=== PATIENT | male | born 1960 | race Caucasian/White ===

== ENCOUNTER 2019-01-13 19:51 | Inpatient (IN) | payer BC ==
[2019-01-13] MEDS ORDERED: HYDROmorphone 1 MG/ML Syringe IVPUSH ONE ×2 (20:06→21:24)
[2019-01-13] MEDS ORDERED: Ondansetron 4 MG/2 ML SDV IVPUSH ONE (20:06)
[2019-01-13] MEDS: Sodium Chloride 0.9% 1,000 ML IV SCH (20:12)
--- NOTE | 2019-01-13 20:14 | EDM.PDOC ---
ED HPI GENERAL MEDICAL PROBLEM - General Chief Complaint: Lower Extremity Injury/Pain Stated Complaint: [facility] Time Seen by Provider: 01/13/19 19:53 Source of Information: Reports: Patient, Family () History Limitations: Reports: No Limitations - History of Present Illness INITIAL COMMENTS - FREE TEXT/NARRATIVE: Mr. 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 He was able to get up, but cannot bear weight on his right lower extremity due to pain in his right hip. He states that he is otherwise uninjured. No prior right hip injury. The patient was brought to the ED by EMS. An IV was placed, but he did not receive any medication. Here in the ED, the patient is keeping his right hip flexed at about 90, with a pillow under his knee. He states that he is not in any pain at present, but does not tolerate moving the hip. The patient's last solid food was around 19:00. The patient's PCP is Dr. Srinivas Mcrae. His Oncologist is Dr. Refugio Morel. His Orthopedic Surgeon is Dr. Abdoul Tadeo. The patient has not received an influenza vaccine this season, but declined an offer for one tonight. Right Hip Pain Score (Numeric/FACES): 6 - Related Data Allergies Allergy/AdvReac Type Severity Reaction Status Date / Time No Known Allergies Allergy Verified 01/13/19 19:58 Past Medical History Cardiovascular History: Reports: High Cholesterol Musculoskeletal History: Reports: Osteoarthritis (bilateral knees) Neurological History: Reports: CVA (RLE hemiparesis) Oncologic (Cancer) History: Reports: Brain (Grade 1 astrocytoma dx'd 1983, s/p excision, RTx), Colon (Stage 3, dx'd 2011, s/p hemicolectomy, RTx, CTx) - Past Surgical History Head Surgeries/Procedures: Reports: Craniotomy (Excision of brain astrocytoma 1983) GI Surgical History: Reports: Colon (Hemicolectomy 2011), Colonoscopy Male Surgical History: Reports: Varicocele Resection Social & Family History - Family History Family Medical History: Noncontributory - Tobacco Use Smoking Status *Q: Never Smoker - Caffeine Use Caffeine Use: Reports: Coffee - Alcohol Use Alcohol Use History: Yes Alcohol Use Frequency: Socially - Recreational Drug Use Recreational Drug Use: Yes Drug Use in Last 12 Months: No Recreational Drug Type: Reports: Marijuana/Hashish (last smoked when 20 years old) - Living Situation & Occupation Living situation: Reports: , with Spouse Occupation: Employed ([employer]) Review of Systems - Review of Systems Review Of Systems: Comprehensive ROS is negative, except as noted in HPI. ED EXAM, GENERAL - Physical Exam Exam: See Below Exam Limited By: No Limitations General Appearance: Alert, WD/WN, No Apparent Distress Eye Exam: Bilateral Eye: EOMI, Normal Inspection Ears: Normal External Exam, Hearing Grossly Normal Nose: Normal Inspection Throat/Mouth: Normal Inspection, Normal Lips, Normal Voice, No Airway Compromise Head: Atraumatic, Normocephalic Neck: Normal Inspection, Full Range of Motion Respiratory/Chest: No Respiratory Distress, Lungs Clear, Normal Breath Sounds, No Accessory Muscle Use Cardiovascular: Normal Peripheral Pulses, Regular Rate, Rhythm, No Edema, No Gallop, No JVD, No Murmur, No Rub Peripheral Pulses: 4+: Radial (L), Radial (R) GI/Abdominal: Normal Bowel Sounds, Soft, Non-Tender, No Organomegaly, No Distention, No Abnormal Bruit, No Mass (Male) Exam: Deferred Rectal (Males) Exam: Deferred Back Exam: Other (Unable to inspect the patient's back, as the patient is unable to extend his right hip) Extremities: Normal Inspection, Normal Range of Motion, Non-Tender (including palpation of the anterior, lateral, and posterior right hip, however, pain is induced and the right hip with any attempt at flexion or extension, traction, or compression.), No Pedal Edema, Normal Capillary Refill Neurological: Alert, Oriented, Normal Cognition, No Motor/Sensory Deficits, Other (Right upper extremity tremor) Psychiatric: Normal Affect Skin Exam: Warm, Dry, Intact, Normal Color, No Rash Course - Vital Signs Last Recorded V/S: Last Vital Signs Temp 37.1 C 01/13/19 19:54 Pulse 55 L 01/13/19 19:54 Resp 15 01/13/19 19:54 BP 111/72 01/13/19 19:54 Pulse Ox 98 01/13/19 19:54 - Orders/Labs/Meds Orders: Active Orders 24 hr Category Date Time Status Sodium Chloride 0.9% [Normal Saline] 1,000 ml Med 01/13/19 20:15 Active IV ASDIRECTED Medication Orders Sodium Chloride (Normal Saline) 1,000 mls @ 100 mls/hr IV ASDIRECTED MARIIA Last Admin: 01/13/19 20:12 Dose: 100 mls/hr Meds: Medications Generic Name Dose Route Start Last Admin Trade Name Freq PRN Reason Stop Dose Admin Sodium Chloride 1,000 mls @ 100 mls/hr 01/13/19 20:15 01/13/19 20:12 Normal Saline IV 100 mls/hr ASDIRECTED MARIIA Administration Discontinued Medications Generic Name Dose Route Start Last Admin Trade Name Freq PRN Reason Stop Dose Admin Hydromorphone HCl 1 mg 01/13/19 20:06 01/13/19 20:13 Dilaudid IVPUSH 01/13/19 20:07 1 mg ONETIME ONE Administration Hydromorphone HCl 1 mg 01/13/19 21:24 01/13/19 21:27 Dilaudid IVPUSH 01/13/19 21:25 1 mg ONETIME ONE Administration Hydromorphone HCl Confirm 01/13/19 21:26 Dilaudid Administered 01/13/19 21:27 Dose 1 mg .ROUTE .STK-MED ONE Ondansetron HCl 4 mg 01/13/19 20:06 01/13/19 20:12 Zofran IVPUSH 01/13/19 20:07 4 mg ONETIME ONE Administration - Re-Assessments/Exams Free Text/Narrative Re-Assessment/Exam: 01/13/19 20:22 I have ordered some Dilaudid, Zofran, and IV fluid, along with right hip x- rays. We will see if we can straighten the patient's right hip after he receives Dilaudid, in order to get adequate x-rays. 01/13/19 20:59 3-view radiographs of the right hip and pelvis appears to demonstrate an impacted fracture at the junction of the neck and trochanter. No other fractures seen. Formal read per the Radiologist pending. Case discussed with Dr. Tadeo. He requested that we admit the patient to the Hospitalist, and he will fix the hip either tomorrow or Sunday. He does not need any additional workup at this time. 01/13/19 21:06 The above situation was discussed with the patient and his . They are agreeable to his being admitted. 01/13/19 21:[address] Harper at 21:44. She is willing to admit the patient , but does not see any active medical issues that she needs to address. She will contact Dr. Tadeo to see if he really wants the patient admitted to her service versus admitting the patient himself, then call me back. 01/13/19 21:[address] Harper at 21:56. She will admit the patient to her service. Departure - Departure Time of Disposition: 21:59 Disposition: Admitted As Inpatient 67 Condition: Good Clinical Impression: Fracture of right hip requiring operative repair - Discharge Information *PRESCRIPTION DRUG MONITORING PROGRAM REVIEWED*: Not Applicable *COPY OF PRESCRIPTION DRUG MONITORING REPORT IN PATIENT BABS: Not Applicable Referrals: Srinivas Mcrae MD [Primary Care Provider] - Refugio Morel MD [Ordering Only Provider] - Abdoul Tadeo MD [Physician] - - My Orders Last 24 Hours: My Active Orders 01/13/19 20:15 Sodium Chloride 0.9% [Normal Saline] 1,000 ml IV ASDIRECTED - Assessment/Plan Last 24 Hours: My Active Orders 01/13/19 20:15 Sodium Chloride 0.9% [Normal Saline] 1,000 ml IV ASDIRECTED
--- NOTE | 2019-01-13 20:48 | CR ---
Pelvis and are right hip: AP view of the pelvis was obtained as well as AP and frog-leg lateral views of the right hip. Comparison: No previous study. Fracture is noted within a basicervical/upper intertrochanteric location within the right hip. Mild varus angulation is seen. There appears to be a fracture isolating the greater trochanter as seen on the crosstable lateral view. No additional fracture or other abnormality is seen. Impression: 1. Right hip fracture as noted above. Diagnostic code #5
[2019-01-13] MEDS ORDERED: HYDROmorphone 1 MG/ML Syringe ONE (21:26)
[2019-01-14] MEDS ORDERED: Ondansetron 4 MG/2 ML SDV IV PRN (00:10)
[2019-01-14] MEDS ORDERED: Morphine 2 MG/ML Syringe IVPUSH PRN (00:10)
--- NOTE | 2019-01-14 00:16 | PCM.HP.2 ---
H&P History of Present Illness - General Date of Service: 01/13/19 Admit Problem/Dx: Admission Diagnosis/Problem Admission Diagnosis/Problem Hip fracture requiring operative repair - History of Present Illness Initial Comments - Free Text/Narative: Mr. 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 He was able to get up, but cannot bear weight on his right lower extremity due to pain in his right hip. He states that he is otherwise uninjured. No prior right hip injury. The patient was brought to the ED by EMS. An IV was placed, but he did not receive any medication. Here in the ED, the patient is keeping his right hip flexed at about 90, with a pillow under his knee. He states that he is not in any pain at present, but does not tolerate moving the hip. Right Hip Pain Score (Numeric/FACES): 6 - Related Data Allergies/Adverse Reactions: Allergies Allergy/AdvReac Type Severity Reaction Status Date / Time No Known Allergies Allergy Verified 01/13/19 19:58 Home Medications: Home Meds Pravastatin [Pravachol] 40 mg PO BEDTIME 01/14/19 [History] Acetaminophen/oxyCODONE [Percocet 325-5 MG] 1 - 2 tab PO Q4H PRN #60 tablet [Rx] Aspirin [Ecotrin EC] 325 mg PO BID #84 tab.ec 01/15/19 [Rx] Cyclobenzaprine [Flexeril] 5 mg PO TID PRN #40 tablet 01/15/19 [Rx] Docusate Sodium [Colace] 100 mg PO BID PRN #20 cap 01/15/19 [Rx] Past Medical History HEENT History: Reports: Impaired Vision Cardiovascular History: Reports: High Cholesterol Musculoskeletal History: Reports: Osteoarthritis Other Musculoskeletal History: steroid injection R kneex1 Neurological History: Reports: CVA Other Neuro History: R foot drop and general weakness in R leg, R facial droop and slight slurred speech- wears brace Oncologic (Cancer) History: Reports: Basal Cell Carcinoma, Brain, Colon Other Oncologic History: astrocytoma grade 1 - 1983. Colon ca in 12. R side of ear/face basal cell carcinoma Dermatologic History: Reports: Other (See Below) Other Dermatologic History: alopecia - Infectious Disease History Infectious Disease History: Reports: Chicken Pox - Past Surgical History Head Surgeries/Procedures: Reports: Craniotomy GI Surgical History: Reports: Colon, Colonoscopy Other GI Surgeries/Procedures: bowel resection- 2011 stage 3 colon cancer Male Surgical History: Reports: Varicocele Resection Social & Family History - Family History Family Medical History: Noncontributory - Tobacco Use Smoking Status *Q: Never Smoker - Caffeine Use Caffeine Use: Reports: Coffee Other Caffeine Use: 2-3 cups/day - Recreational Drug Use Recreational Drug Use: No Drug Use in Last 12 Months: No Recreational Drug Type: Reports: Marijuana/Hashish (last smoked when 20 years old) - Living Situation & Occupation Living situation: Reports: , with Spouse Occupation: Employed ([employer]) H&P Review of Systems - Review of Systems: Review Of Systems: Comprehensive ROS is negative, except as noted in HPI. Exam - Exam Exam: See Below - Vital Signs Vital Signs: Last Vital Signs Temp 98.1 F 01/13/19 22:35 Pulse 79 01/13/19 22:35 Resp 16 01/13/19 22:35 BP 122/95 H 01/13/19 22:35 Pulse Ox 92 L 01/13/19 22:35 Weight: 90.718 kg - Exam Physical Exam Comments:: General Appearance: Alert, WD/WN, No Apparent Distress Eye Exam: Bilateral Eye: EOMI, Normal Inspection Ears: Normal External Exam, Hearing Grossly Normal Nose: Normal Inspection Throat/Mouth: Normal Inspection, Normal Lips, Normal Voice, No Airway Compromise Head: Atraumatic, Normocephalic Neck: Normal Inspection, Full Range of Motion Respiratory/Chest: No Respiratory Distress, Lungs Clear, Normal Breath Sounds, No Accessory Muscle Use Cardiovascular: Normal Peripheral Pulses, Regular Rate, Rhythm, No Edema, No Gallop, No JVD, No Murmur, No Rub Peripheral Pulses: 4+: Radial (L), Radial (R) GI/Abdominal: Normal Bowel Sounds, Soft, Non-Tender, No Organomegaly, No Distention, No Abnormal Bruit, No Mass (Male) Exam: Deferred Rectal (Males) Exam: Deferred Back Exam: Other (Unable to inspect the patient's back, as the patient is unable to extend his right hip) Extremities: Normal Inspection, Normal Range of Motion, Non-Tender (including palpation of the anterior, lateral, and posterior right hip, however, pain is induced and the right hip with any attempt at flexion or extension, traction, or compression.), No Pedal Edema, Normal Capillary Refill Neurological: Alert, Oriented, Normal Cognition, No Motor/Sensory Deficits, Other (Right upper extremity tremor) Psychiatric: Normal Affect Skin Exam: Warm, Dry, Intact, Normal Color, No Rash - Patient Data Result Diagrams: 01/15/19 04:40 01/15/19 04:40 - Problem List (1) Fracture of right hip requiring operative repair SNOMED Code(s): 423194144 ICD Code: S72.001A - FRACTURE OF UNSP PART OF NECK OF RIGHT FEMUR, INIT Status: Acute Priority: High Qualifiers: Encounter type: initial encounter Fracture type: closed Qualified Code(s) : S72.001A - Fracture of unspecified part of neck of right femur, initial encounter for closed fracture (2) HLD (hyperlipidemia) SNOMED Code(s): 87251186 ICD Code: E78.5 - HYPERLIPIDEMIA, UNSPECIFIED Status: Chronic Priority: Low Qualifiers: Hyperlipidemia type: unspecified Qualified Code(s): E78.5 - Hyperlipidemia , unspecified Problem List Initiated/Reviewed/Updated: Yes Assessment/Plan Comment:: Right hip fracture Xray described a basicervical / upper intertrochanteric fracture within the r hip PLAN - Pain control - NPO after midnight - Surgery in AM DLD Home management with statin PLAN - reconcile medication once available PROPHYLAXIS DVT-SCDs GI-Not indicated CODE STATUS: FULL CODE DISPOSITION: Presented case to orthopedics in ER, surgery in the AM. - Mortality Measure Prognosis:: Good
[2019-01-14] MEDS: Ketorolac 15 MG/ML SDV IVPUSH PRN ×2 (03:09→15:05)
[2019-01-14] MEDS: Sodium Chloride 0.9% 1,000 ML IV SCH (05:44)
--- NOTE | 2019-01-14 09:23 | PCM.PN ---
- General Info Date of Service: 01/14/19 Admission Dx/Problem (Free Text): Admission Diagnosis/Problem Admission Diagnosis/Problem Hip fracture requiring operative repair Subjective Update: In to see Ian before and after surgery He is doing well. Pain is controlled. PT/OT to evaluate patient and present home exercises Hgb stable with minimal blood loss during surgery. Functional Status: Reports: Pain Controlled, Tolerating Diet, Urinating, Incentive Spirometry. Denies: Ambulating, New Symptoms - Review of Systems General: Reports: No Symptoms. Denies: Fever, Weakness, Fatigue, Malaise, Chills HEENT: Reports: No Symptoms. Denies: Headaches, Sore Throat Pulmonary: Reports: No Symptoms. Denies: Shortness of Breath, Cough, Sputum, Wheezing Cardiovascular: Reports: No Symptoms. Denies: Chest Pain, Palpitations, Dyspnea on Exertion Gastrointestinal: Reports: No Symptoms. Denies: Abdominal Pain, Constipation, Diarrhea, Nausea, Vomiting Genitourinary: Reports: No Symptoms. Denies: Pain Musculoskeletal: Reports: Leg Pain (Right hip - stable and controlled ) Skin: Reports: No Symptoms. Denies: Cyanosis Neurological: Reports: Difficulty Walking, Gait Disturbance. Denies: Confusion Psychiatric: Reports: No Symptoms - Patient Data Vitals - Most Recent: Last Vital Signs Temp 98.2 F 01/14/19 05:40 Pulse 58 L 01/14/19 05:40 Resp 16 01/14/19 05:40 BP 118/64 01/14/19 05:40 Pulse Ox 97 01/14/19 05:40 Weight - Most Recent: 202 lb 14.4 oz I&O - Last 24 Hours: Intake & Output 01/13/19 01/14/19 01/14/19 22:59 06:59 14:59 Intake Total 718 Balance 718 Lab Results Last 24 Hours: Laboratory Results - last 24 hr 01/13/19 Range/Units 23:00 MRSA (PCR) Negative Med Orders - Current: Current Medications Sodium Chloride (Normal Saline) 1,000 mls @ 100 mls/hr IV ASDIRECTED MARIIA Last Admin: 01/14/19 05:44 Dose: 100 mls/hr Ketorolac Tromethamine (Toradol) 15 mg IVPUSH Q6H PRN PRN Reason: Pain (moderate 4-6) Stop: 01/19/19 00:11 Last Admin: 01/14/19 03:09 Dose: 15 mg Morphine Sulfate (Morphine) 1 mg IVPUSH Q2H PRN PRN Reason: Pain (severe 7-10) Stop: 01/15/19 00:13 Last Admin: 01/14/19 00:28 Dose: 1 mg Ondansetron HCl (Zofran) 4 mg IV Q6H PRN PRN Reason: Nausea/Vomiting Discontinued Medications Hydromorphone HCl (Dilaudid) 1 mg IVPUSH ONETIME ONE Stop: 01/13/19 20:07 Last Admin: 01/13/19 20:13 Dose: 1 mg Hydromorphone HCl (Dilaudid) 1 mg IVPUSH ONETIME ONE Stop: 01/13/19 21:25 Last Admin: 01/13/19 21:27 Dose: 1 mg Hydromorphone HCl (Dilaudid) Confirm Administered Dose 1 mg .ROUTE .STK-MED ONE Stop: 01/13/19 21:27 Last Admin: 01/13/19 22:14 Dose: Not Given Ondansetron HCl (Zofran) 4 mg IVPUSH ONETIME ONE Stop: 01/13/19 20:07 Last Admin: 01/13/19 20:12 Dose: 4 mg - Exam Quality Assessment: Urine Catheter, DVT Prophylaxis. No: Supplemental Oxygen General: Alert, Oriented, Cooperative, No Acute Distress HEENT: Pupils Equal, Pupils Reactive, EOMI, Mucous Membr. Moist/[place] Neck: Supple, Trachea Midline Lungs: Clear to Auscultation, Normal Respiratory Effort Cardiovascular: Regular Rate, Regular Rhythm GI/Abdominal Exam: Normal Bowel Sounds, Soft, Non-Tender, No Distention, No Abnormal Bruit (Male) Exam: Deferred Back Exam: Normal Inspection, Full Range of Motion Extremities: No Pedal Edema, Normal Capillary Refill, Leg Pain (Right hip ), Limited Range of Motion (Leg in flexed position - severe pain with movement ) Peripheral Pulses: 2+: Radial (L), Radial (R), Dorsalis Pedis (L), Dorsalis Pedis (R) Skin: Warm, Dry, Intact Neurological: No New Focal Deficit Psy/Mental Status: Alert, Normal Affect, Normal Mood - Problem List & Annotations (1) HLD (hyperlipidemia) SNOMED Code(s): 70848946 Code(s): E78.5 - HYPERLIPIDEMIA, UNSPECIFIED Status: Chronic Priority: Low Qualifiers: Hyperlipidemia type: unspecified Qualified Code(s): E78.5 - Hyperlipidemia , unspecified (2) Fracture of right hip requiring operative repair SNOMED Code(s): 813281097 Code(s): S72.001A - FRACTURE OF UNSP PART OF NECK OF RIGHT FEMUR, INIT Status: Acute Priority: High Qualifiers: Encounter type: initial encounter Fracture type: closed Qualified Code(s) : S72.001A - Fracture of unspecified part of neck of right femur, initial encounter for closed fracture - Problem List Review Problem List Initiated/Reviewed/Updated: Yes - Plan Plan:: Right hip fracture Xray described a basicervical / upper intertrochanteric fracture within the r hip No known prior cardiac or lung problems History of CVA, Astrocytoma s/p excision, Colon cancer s/p resection. PLAN - Pain control - NPO until after surgery - Surgery today - 12-lead EKG obtained - PT/OT post-surgically - Based on data present patient is low risk for adverse events secondary to planned IM nailing of right hip. DLD Home management with statin PLAN - reconcile medication once available Hx/o CVA with residual right sided hemiparesis Plan -PT/OT PROPHYLAXIS DVT-SCDs GI-Not indicated CODE STATUS: FULL CODE DISPOSITION: Presented case to orthopedics in ER, surgery in the AM.
--- NOTE | 2019-01-14 10:28 | PCM.PREANE ---
Preanesthetic Assessment - Anesthesia/Transfusion/Family Hx Anesthesia History: Prior Anesthesia Without Reaction Family History of Anesthesia Reaction: No Transfusion History: No Prior Transfusion(s) Intubation History: Unknown - Review of Systems General: No Symptoms Pulmonary: No Symptoms (ETOH occasionally, high cholesterol), Cough (recent cold residual that is now clearing up) Cardiovascular: Palpitations (On occasion with anxiety) Gastrointestinal: No Symptoms (GERD on occasion) Neurological: No Symptoms (CVA(2011) right lower leg hemiparesis(foot brace due to foot drop), Brain Astrocytoma 1983 with craniotomy, Colon Ca 2011 with a hemicolectomy, Motion sickness) - Physical Assessment NPO Status Date: 01/13/19 NPO Status Time: 21:00 Vital Signs: Last Vital Signs Temp 36.8 C 01/14/19 05:40 Pulse 58 L 01/14/19 05:40 Resp 16 01/14/19 05:40 BP 118/64 01/14/19 05:40 Pulse Ox 97 01/14/19 05:40 Height: 1.83 m Weight: 92.034 kg ASA Class: 3 Mental Status: Alert & Oriented x3 Airway Class: Mallampati = 3 Dentition: Reports: Normal Dentition, [place] Shield(s), Caries Thyro-Mental Finger Breadths: 3 Mouth Opening Finger Breadths: 3 ROM/Head Extension: Full Lungs: Clear to Auscultation, Normal Respiratory Effort Cardiovascular: Regular Rate, Regular Rhythm, No Murmurs - Lab Values: Laboratory Last Values MRSA (PCR) Negative 01/13/19 23:00 - Allergies Allergies/Adverse Reactions: Allergies Allergy/AdvReac Type Severity Reaction Status Date / Time No Known Allergies Allergy Verified 01/13/19 19:58 - Anesthesia Plan Pre-Op Medication Ordered: None - Acknowledgements Anesthesia Type Planned: General Anesthesia, Spinal Pt an Appropriate Candidate for the Planned Anesthesia: Yes Alternatives and Risks of Anesthesia Discussed w Pt/Guardian: Yes Pt/Guardian Understands and Agrees with Anesthesia Plan: Yes PreAnesthesia Questionnaire HEENT History: Reports: Impaired Vision Cardiovascular History: Reports: High Cholesterol Musculoskeletal History: Reports: Osteoarthritis Other Musculoskeletal History: steroid injection R kneex1 Neurological History: Reports: CVA Other Neuro History: R foot drop and general weakness in R leg, R facial droop and slight slurred speech- wears brace Oncologic (Cancer) History: Reports: Basal Cell Carcinoma, Brain, Colon Other Oncologic History: astrocytoma grade 1 - 1984. Colon ca in 12. R side of ear/face basal cell carcinoma Dermatologic History: Reports: Other (See Below) Other Dermatologic History: alopecia - Infectious Disease History Infectious Disease History: Reports: Chicken Pox - Past Surgical History Head Surgeries/Procedures: Reports: Craniotomy GI Surgical History: Reports: Colon, Colonoscopy Other GI Surgeries/Procedures: bowel resection- 2012 stage 3 colon cancer Male Surgical History: Reports: Varicocele Resection - SUBSTANCE USE Smoking Status *Q: Never Smoker Recreational Drug Use History: No Recreational Drug Type: Reports: Marijuana/Hashish (last smoked when 20 years old) - CURRENT (IN HOUSE) MEDS Current Meds: Current Medications Sodium Chloride (Normal Saline) 1,000 mls @ 100 mls/hr IV ASDIRECTED MARIIA Last Admin: 01/14/19 05:44 Dose: 100 mls/hr Ketorolac Tromethamine (Toradol) 15 mg IVPUSH Q6H PRN PRN Reason: Pain (moderate 4-6) Stop: 01/19/19 00:11 Last Admin: 01/14/19 03:09 Dose: 15 mg Morphine Sulfate (Morphine) 1 mg IVPUSH Q2H PRN PRN Reason: Pain (severe 7-10) Stop: 01/15/19 00:13 Last Admin: 01/14/19 00:28 Dose: 1 mg Ondansetron HCl (Zofran) 4 mg IV Q6H PRN PRN Reason: Nausea/Vomiting Discontinued Medications Hydromorphone HCl (Dilaudid) 1 mg IVPUSH ONETIME ONE Stop: 01/13/19 20:07 Last Admin: 01/13/19 20:13 Dose: 1 mg Hydromorphone HCl (Dilaudid) 1 mg IVPUSH ONETIME ONE Stop: 01/13/19 21:25 Last Admin: 01/13/19 21:27 Dose: 1 mg Hydromorphone HCl (Dilaudid) Confirm Administered Dose 1 mg .ROUTE .STK-MED ONE Stop: 01/13/19 21:27 Last Admin: 01/13/19 22:14 Dose: Not Given Ondansetron HCl (Zofran) 4 mg IVPUSH ONETIME ONE Stop: 01/13/19 20:07 Last Admin: 01/13/19 20:12 Dose: 4 mg
[2019-01-14] MEDS ORDERED: Propofol 200 MG/20 ML SDV ONE ×4 (10:40→13:07)
[2019-01-14] MEDS ORDERED: Midazolam 1 MG/ML 2 ML SDV ONE (10:41)
[2019-01-14] MEDS ORDERED: fentaNYL 100 MCG/2 ML SDV ONE ×2 (10:41→11:42)
[2019-01-14] MEDS ORDERED: Bupivacaine 0.25% 10 ML SDV ONE ×2 (11:18→11:45)
[2019-01-14] MEDS ORDERED: Ondansetron 4 MG/2 ML SDV ONE (11:41)
[2019-01-14] MEDS ORDERED: ceFAZolin 1 GM Vial ONE (11:56)
[2019-01-14] MEDS ORDERED: ePHEDrine/Normal Saline 25 MG/5 ML Syringe ONE (11:57)
[2019-01-14] MEDS ORDERED: Lactated Ringers 1,000 ML ONE (12:12)
[2019-01-14] MEDS ORDERED: diphenhydrAMINE 50 MG/ML SDV IVPUSH PRN (13:22)
[2019-01-14] MEDS ORDERED: ePHEDrine 50 MG/ML SDV IVPUSH PRN (13:22)
[2019-01-14] MEDS ORDERED: Ondansetron 4 MG/2 ML SDV IVPUSH PRN (13:22)
--- NOTE | 2019-01-14 13:50 | PCM.POSTAN ---
POST ANESTHESIA ASSESSMENT - MENTAL STATUS Mental Status: Alert, Oriented - VITAL SIGNS Vital Signs: Last Vital Signs Temp 36.8 C 01/14/19 05:40 Pulse 58 L 01/14/19 05:40 Resp 16 01/14/19 05:40 BP 118/64 01/14/19 05:40 Pulse Ox 97 01/14/19 05:40 - RESPIRATORY Respiratory Status: Respiratory Rate WNL, Airway Patent, O2 Saturation Stable, Supplemental Oxygen - CARDIOVASCULAR CV Status: Pulse Rate WNL, Blood Pressure Stable - GASTROINTESTINAL GI Status: No Symptoms - PAIN Pain Score: 0 - POST OP HYDRATION Hydration Status: Adequate & Stable
[2019-01-14] MEDS ORDERED: Cyclobenzaprine 10 MG Tab PO PRN (13:54)
[2019-01-14] MEDS ORDERED: Ketorolac 15 MG/ML SDV IVPUSH PRN (13:54)
[2019-01-14] MEDS ORDERED: Sennosides 8.6 MG Tab PO PRN (13:55)
[2019-01-14] MEDS ORDERED: Magnesium Hydroxide 400 MG/5 ML Susp 30 ML Cup PO PRN (13:55)
[2019-01-14] MEDS ORDERED: Bisacodyl 5 MG Tab PO PRN (13:55)
--- NOTE | 2019-01-14 14:05 | CR ---
Right hip: Six fluoroscopic spot views were obtained of the right hip. Findings: Compression screw and short intramedullary bee are noted affixing previous hip fracture. Alignment has been restored to anatomic. No additional abnormality is seen. Fluoroscopy time is 200.3 seconds. Impression: 1. Reduction and fixation of previous right hip fracture. Diagnostic code #2
--- NOTE | 2019-01-14 14:20 | PCM48HPAN ---
Post Anesthesia Note - EVALUATION WITHIN 48HRS OF ANESTHETIC Vital Signs in Normal Range: No (pt HR occasionally decreasing to low 40s, post op RN did witness 39) Patient Participated in Evaluation: Yes Respiratory Function Stable: Yes Airway Patent: Yes Cardiovascular Function Stable: Yes Hydration Status Stable: Yes Pain Control Satisfactory: Yes Nausea and Vomiting Control Satisfactory: Yes Mental Status Recovered: Yes Vital Signs: Last Vital Signs Temp 37.8 C 01/14/19 14:00 Pulse 51 L 01/14/19 14:00 Resp 19 01/14/19 14:00 BP 121/69 01/14/19 14:00 Pulse Ox 99 01/14/19 14:00 - COMMENTS/OBSERVATIONS Free Text/Narrative:: will plan for telementry when discharged from recovery to med surg. 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
[2019-01-14] MEDS ORDERED: Lactated Ringers 1,000 ML IV SCH (14:45)
[2019-01-14] MEDS: Acetaminophen/oxyCODONE 325-5 MG Tab PO PRN ×2 (15:07→19:44)
--- NOTE | 2019-01-14 15:24 | CR ---
Pelvis and right hip: AP view of the pelvis was obtained as well as AP and lateral views of right hip. Comparison: Previous fluoroscopic study performed earlier on the same day as well as baseline exam of 01/13/19. Compression screw and short intramedullary bee affixes the previous right hip fracture. Alignment is anatomic. Joint spaces within both hips are preserved. Sacroiliac joints are unremarkable. No acute fracture or other abnormality is appreciated. Incidental skin tio are partially visualized. Impression: 1. Orthopedic hardware within previous right hip fracture. 2. No complicating process is seen. Diagnostic code #2
[2019-01-14] MEDS: ceFAZolin 2 GM in Premix Bag 1 BAG IV SCH (20:40)
[2019-01-14] MEDS: Famotidine 20 MG Tab PO SCH (20:41)
[2019-01-14] MEDS ORDERED: Simvastatin 20 MG Tab PO SCH (21:00)
[2019-01-15] MEDS: Ketorolac 15 MG/ML SDV IVPUSH PRN ×2 (00:50→11:38)
[2019-01-15] MEDS: ceFAZolin 2 GM in Premix Bag 1 BAG IV SCH ×2 (05:01→11:39)
[2019-01-15] MEDS: Acetaminophen/oxyCODONE 325-5 MG Tab PO PRN ×3 (05:01→13:20)
--- NOTE | 2019-01-15 07:50 | PCM48HPAN ---
Post Anesthesia Note - EVALUATION WITHIN 48HRS OF ANESTHETIC Vital Signs in Normal Range: Yes Patient Participated in Evaluation: Yes Respiratory Function Stable: Yes Airway Patent: Yes Cardiovascular Function Stable: Yes Hydration Status Stable: Yes Pain Control Satisfactory: Yes Nausea and Vomiting Control Satisfactory: Yes Mental Status Recovered: Yes (States doing good. Minimal pain. No nausea) Vital Signs: Last Vital Signs Temp 98.1 F 01/15/19 00:48 Pulse 64 01/15/19 05:02 Resp 18 01/15/19 00:48 BP 109/81 01/15/19 05:02 Pulse Ox 93 L 01/15/19 05:02
--- NOTE | 2019-01-15 08:41 | PCM.SURGPN ---
- General Info Date of Service: 01/15/19 POD#: 1 Functional Status: Reports: Pain Controlled, Tolerating Diet, Ambulating - Patient Data Vitals - Most Recent: Last Vital Signs Temp 98.1 F 01/15/19 00:48 Pulse 64 01/15/19 05:02 Resp 18 01/15/19 00:48 BP 109/81 01/15/19 05:02 Pulse Ox 93 L 01/15/19 05:02 Weight - Most Recent: 207 lb I&O - Last 24 Hours: Intake & Output 01/14/19 01/15/19 01/15/19 22:59 06:59 14:59 Intake Total 3055 850 Output Total 100 1800 Balance 2955 -950 Lab Results Last 24 Hrs: Laboratory Results - last 24 hr 01/14/19 01/14/19 01/14/19 Range/Units 10:30 10:30 10:30 WBC 10.04 H (4.23-9.07) K/mm3 RBC 4.50 L (4.63-6.08) M/mm3 Hgb 13.8 (13.7-17.5) gm/dl Hct 41.3 (40.1-51.0) % MCV 91.8 (79.0-92.2) fl MCH 30.7 (25.7-32.2) pg MCHC 33.4 (32.2-35.5) g/dl RDW Std Deviation 42.8 (35.1-43.9) fL Plt Count 210 (163-337) K/mm3 MPV 9.3 L (9.4-12.3) fl Neut % (Auto) 81.9 H (34.0-67.9) % Lymph % (Auto) 9.0 L (21.8-53.1) % [place] % (Auto) 8.7 (5.3-12.2) % Eos % (Auto) 0.2 L (0.8-7.0) Baso % (Auto) 0.1 (0.1-1.2) % Neut # (Auto) 8.23 H (1.78-5.38) K/mm3 Lymph # (Auto) 0.90 L (1.32-3.57) K/mm3 [place] # (Auto) 0.87 H (0.30-0.82) K/mm3 Eos # (Auto) 0.02 L (0.04-0.54) K/mm3 Baso # (Auto) 0.01 (0.01-0.08) K/mm3 Manual Slide Review Abnormal smear PT 11.1 (9.7-12.0) SECONDS INR 1.02 Sodium 142 (136-145) mEq/L Potassium 4.0 (3.5-5.1) mEq/L Chloride 107 (98-107) mEq/L Carbon Dioxide 27 (21-32) mEq/L Anion Gap 12.0 (5-15) BUN 20 H (7-18) mg/dL Creatinine 1.1 (0.7-1.3) mg/dL Est Cr Clr Drug Dosing 81.32 mL/min Estimated GFR (MDRD) > 60 (>60) mL/min BUN/Creatinine Ratio 18.2 H (14-18) Glucose 115 H (74-106) mg/dL Calcium 8.5 (8.5-10.1) mg/dL Phosphorus (2.6-4.7) mg/dL Magnesium (1.8-2.4) mg/dl Total Bilirubin 0.8 (0.2-1.0) mg/dL AST 20 (15-37) U/L ALT 43 (16-63) U/L Alkaline Phosphatase 104 (46-116) U/L Total Protein 6.3 L (6.4-8.2) g/dl Albumin 3.4 (3.4-5.0) g/dl Globulin 2.9 gm/dL Albumin/Globulin Ratio 1.2 (1-2) 01/14/19 01/14/19 01/15/19 Range/Units 14:25 14:55 04:40 WBC 6.70 (4.23-9.07) K/mm3 RBC 4.32 L (4.63-6.08) M/mm3 Hgb 13.5 L 13.0 L (13.7-17.5) gm/dl Hct 40.4 (40.1-51.0) % MCV 93.5 H (79.0-92.2) fl MCH 30.1 (25.7-32.2) pg MCHC 32.2 (32.2-35.5) g/dl RDW Std Deviation 43.4 (35.1-43.9) fL Plt Count 185 (163-337) K/mm3 MPV 9.5 (9.4-12.3) fl Neut % (Auto) (34.0-67.9) % Lymph % (Auto) (21.8-53.1) % [place] % (Auto) (5.3-12.2) % Eos % (Auto) (0.8-7.0) Baso % (Auto) (0.1-1.2) % Neut # (Auto) (1.78-5.38) K/mm3 Lymph # (Auto) (1.32-3.57) K/mm3 [place] # (Auto) (0.30-0.82) K/mm3 Eos # (Auto) (0.04-0.54) K/mm3 Baso # (Auto) (0.01-0.08) K/mm3 Manual Slide Review PT (9.7-12.0) SECONDS INR Sodium 139 (136-145) mEq/L Potassium 4.4 (3.5-5.1) mEq/L Chloride 107 (98-107) mEq/L Carbon Dioxide 24 (21-32) mEq/L Anion Gap 12.4 (5-15) BUN 19 H (7-18) mg/dL Creatinine 1.0 (0.7-1.3) mg/dL Est Cr Clr Drug Dosing 89.46 mL/min Estimated GFR (MDRD) > 60 (>60) mL/min BUN/Creatinine Ratio 19.0 H (14-18) Glucose 123 H (74-106) mg/dL Calcium 8.4 L (8.5-10.1) mg/dL Phosphorus 3.1 (2.6-4.7) mg/dL Magnesium 1.9 (1.8-2.4) mg/dl Total Bilirubin (0.2-1.0) mg/dL AST (15-37) U/L ALT (16-63) U/L Alkaline Phosphatase (46-116) U/L Total Protein (6.4-8.2) g/dl Albumin (3.4-5.0) g/dl Globulin gm/dL Albumin/Globulin Ratio (1-2) 01/15/19 Range/Units 04:40 WBC (4.23-9.07) K/mm3 RBC (4.63-6.08) M/mm3 Hgb (13.7-17.5) gm/dl Hct (40.1-51.0) % MCV (79.0-92.2) fl MCH (25.7-32.2) pg MCHC (32.2-35.5) g/dl RDW Std Deviation (35.1-43.9) fL Plt Count (163-337) K/mm3 MPV (9.4-12.3) fl Neut % (Auto) (34.0-67.9) % Lymph % (Auto) (21.8-53.1) % [place] % (Auto) (5.3-12.2) % Eos % (Auto) (0.8-7.0) Baso % (Auto) (0.1-1.2) % Neut # (Auto) (1.78-5.38) K/mm3 Lymph # (Auto) (1.32-3.57) K/mm3 [place] # (Auto) (0.30-0.82) K/mm3 Eos # (Auto) (0.04-0.54) K/mm3 Baso # (Auto) (0.01-0.08) K/mm3 Manual Slide Review PT (9.7-12.0) SECONDS INR Sodium (136-145) mEq/L Potassium (3.5-5.1) mEq/L Chloride (98-107) mEq/L Carbon Dioxide (21-32) mEq/L Anion Gap (5-15) BUN (7-18) mg/dL Creatinine (0.7-1.3) mg/dL Est Cr Clr Drug Dosing mL/min Estimated GFR (MDRD) (>60) mL/min BUN/Creatinine Ratio (14-18) Glucose (74-106) mg/dL Calcium (8.5-10.1) mg/dL Phosphorus (2.6-4.7) mg/dL Magnesium 2.0 (1.8-2.4) mg/dl Total Bilirubin (0.2-1.0) mg/dL AST (15-37) U/L ALT (16-63) U/L Alkaline Phosphatase (46-116) U/L Total Protein (6.4-8.2) g/dl Albumin (3.4-5.0) g/dl Globulin gm/dL Albumin/Globulin Ratio (1-2) Med Orders - Current: Current Medications Aspirin (Ecotrin) 325 mg PO BID MARIIA Bisacodyl (Dulcolax) 5 mg PO DAILY PRN PRN Reason: Constipation Cyclobenzaprine HCl (Flexeril) 5 mg PO TID PRN PRN Reason: Spasms Famotidine (Pepcid) 20 mg PO Q12H [facility] Last Admin: 01/14/19 20:41 Dose: 20 mg Cefazolin Sodium/Dextrose 2 gm (/ Premix) 50 mls @ 100 mls/hr IV Q8H [facility] Stop: 01/15/19 12:29 Last Admin: 01/15/19 05:01 Dose: 100 mls/hr Ketorolac Tromethamine (Toradol) 15 mg IVPUSH Q6H PRN PRN Reason: Pain (moderate 4-6) Stop: 01/19/19 00:11 Last Admin: 01/15/19 00:50 Dose: 15 mg Magnesium Hydroxide (Milk Of Magnesia) 30 ml PO BID PRN PRN Reason: Constipation Ondansetron HCl (Zofran) 4 mg IV Q6H PRN PRN Reason: Nausea/Vomiting Oxycodone/Acetaminophen (Percocet 325-5 Mg) 1 - 2 tab PO Q4H PRN PRN Reason: Pain Last Admin: 01/15/19 05:01 Dose: 2 tab Senna (Senna) 8.6 mg PO BID PRN PRN Reason: Constipation Simvastatin (Zocor) 20 mg PO BEDTIME [facility] Last Admin: 01/14/19 20:40 Dose: 20 mg Discontinued Medications Bupivacaine HCl (Sensorcaine-Mpf 0.25%) Confirm Administered Dose 30 ml .ROUTE .STK-MED ONE Stop: 01/14/19 11:19 Last Admin: 01/14/19 13:32 Dose: 14 ml Bupivacaine HCl (Sensorcaine-Mpf 0.25%) Confirm Administered Dose 10 ml .ROUTE .STK-MED ONE Stop: 01/14/19 11:46 Cefazolin Sodium (Ancef) Confirm Administered Dose 2 gm .ROUTE .STK-MED ONE Stop: 01/14/19 11:57 Diphenhydramine HCl (Benadryl) 25 mg IVPUSH Q6H PRN PRN Reason: pruritis Stop: 01/14/19 17:00 Ephedrine Sulfate (Ephedrine In Ns) Confirm Administered Dose 25 mg .ROUTE .STK- MED ONE Stop: 01/14/19 11:58 Ephedrine Sulfate (Ephedrine Sulfate) 5 mg IVPUSH ASDIRECTED PRN PRN Reason: Hypotension Stop: 01/14/19 17:00 Fentanyl (Sublimaze) Confirm Administered Dose 100 mcg .ROUTE .STK-MED ONE Stop: 01/14/19 10:42 Fentanyl (Sublimaze) Confirm Administered Dose 100 mcg .ROUTE .STK-MED ONE Stop: 01/14/19 11:43 Hydromorphone HCl (Dilaudid) 1 mg IVPUSH ONETIME ONE Stop: 01/13/19 20:07 Last Admin: 01/13/19 20:13 Dose: 1 mg Hydromorphone HCl (Dilaudid) 1 mg IVPUSH ONETIME ONE Stop: 01/13/19 21:25 Last Admin: 01/13/19 21:27 Dose: 1 mg Hydromorphone HCl (Dilaudid) Confirm Administered Dose 1 mg .ROUTE .STK-MED ONE Stop: 01/13/19 21:27 Last Admin: 01/13/19 22:14 Dose: Not Given Sodium Chloride (Normal Saline) 1,000 mls @ 100 mls/hr IV ASDIRECTED [facility] Last Admin: 01/14/19 05:44 Dose: 100 mls/hr Lactated Ringer's (Ringers, Lactated) Confirm Administered Dose 1,000 mls @ as directed .ROUTE .STK-MED ONE Stop: 01/14/19 12:13 Lactated Ringer's (Ringers, Lactated) 1,000 mls @ 75 mls/hr IV ASDIRECTED [facility] Last Admin: 01/14/19 14:58 Dose: 75 mls/hr Ketorolac Tromethamine (Toradol) 15 mg IVPUSH Q6H PRN PRN Reason: Pain Midazolam HCl (Versed 1 Mg/Ml) Confirm Administered Dose 2 mg .ROUTE .STK-MED ONE Stop: 01/14/19 10:42 Morphine Sulfate (Morphine) 1 mg IVPUSH Q2H PRN PRN Reason: Pain (severe 7-10) Stop: 01/15/19 00:13 Last Admin: 01/14/19 00:28 Dose: 1 mg Ondansetron HCl (Zofran) 4 mg IVPUSH ONETIME ONE Stop: 01/13/19 20:07 Last Admin: 01/13/19 20:12 Dose: 4 mg Ondansetron HCl (Zofran) Confirm Administered Dose 4 mg .ROUTE .STK-MED ONE Stop: 01/14/19 11:42 Ondansetron HCl (Zofran) 4 mg IVPUSH ONETIME PRN PRN Reason: Nausea/Vomiting Stop: 01/14/19 17:00 Propofol (Diprivan 20 Ml) Confirm Administered Dose 400 mg .ROUTE .STK-MED ONE Stop: 01/14/19 10:41 Propofol (Diprivan 20 Ml) Confirm Administered Dose 200 mg .ROUTE .STK-MED ONE Stop: 01/14/19 11:43 Propofol (Diprivan 20 Ml) Confirm Administered Dose 200 mg .ROUTE .STK-MED ONE Stop: 01/14/19 12:31 Propofol (Diprivan 20 Ml) Confirm Administered Dose 200 mg .ROUTE .STK-MED ONE Stop: 01/14/19 13:08 - Exam Wound/Incisions: Dressing Dry and Intact General: Alert, Cooperative, No Acute Distress Lungs: Normal Respiratory Effort Extremities: Other (The pt was able to sense light touch at RLE. Right thigh soft, nontender. Teresa's negative for RLE.) - Problem List Review Problem List Initiated/Reviewed/Updated: Yes - My Orders Last 24 Hours: Active Orders 24 hr Category Date Time Status Patient Status [ADT] Routine ADT 01/15/19 04:29 Active Ambulate [RC] PER UNIT ROUTINE Care 01/14/19 13:55 Active Antiembolic Devices [RC] BID Care 01/14/19 13:56 Active Communication Order [RC] 22 Care 01/14/19 18:57 Active Communication Order [RC] ASDIRECTED Care 01/14/19 13:21 Active Communication Order [RC] ASDIRECTED Care 01/14/19 20:38 Active EKG Documentation Completion [RC] STAT Care 01/14/19 10:18 Active May Shower [RC] ASDIRECTED Care 01/14/19 13:55 Active Notify Provider [RC] ASDIRECTED Care 01/14/19 13:21 Active Oxygen Therapy [RC] ASDIRECTED Care 01/14/19 13:22 Active Oxygen Therapy [RC] PRN Care 01/14/19 13:55 Active Pulse Oximetry [RC] ASDIRECTED Care 01/14/19 13:22 Active RT Incentive Spirometry [RC] Q1HWA Care 01/14/19 13:54 Active Ready for Discharge [RC] PER UNIT ROUTINE Care 01/14/19 08:46 Inactive Up to Chair [RC] ASDIRECTED Care 01/14/19 13:55 Active Urinary Catheter Removal [RC] Per Unit Routine Care 01/14/19 13:54 Active Vital Signs [RC] Q15M Care 01/14/19 13:22 Inactive OT Evaluation and Treatment [CONS] Routine Cons 01/14/19 13:55 Active PT Evaluation and Treatment [CONS] Routine Cons 01/14/19 13:55 Active Regular Diet [DIET] Diet 01/14/19 Dinner Active COMPREHENSIVE METABOLIC PN,CMP [CHEM] AM Lab 01/15/19 14:00 Ordered Acetaminophen/oxyCODONE [Percocet 325-5 MG] Med 01/14/19 13:54 Active 1 - 2 tab PO Q4H PRN Aspirin [Ecotrin] Med 01/15/19 09:00 Active 325 mg PO BID Bisacodyl [Dulcolax] Med 01/14/19 13:55 Active 5 mg PO DAILY PRN Cyclobenzaprine [Flexeril] Med 01/14/19 13:54 Active 5 mg PO TID PRN Famotidine [Pepcid] Med 01/14/19 21:00 Active 20 mg PO Q12H Magnesium Hydroxide [Milk of Magnesia] Med 01/14/19 13:55 Active 30 ml PO BID PRN Sennosides [Senna] Med 01/14/19 13:55 Active 8.6 mg PO BID PRN Simvastatin [Zocor] Med 01/14/19 21:00 Active 20 mg PO BEDTIME ceFAZolin [Ancef] 2 gm Med 01/14/19 20:00 Active Premix Bag 1 bag IV Q8H Antiembolic Hose [OM.PC] Per Unit Routine Oth 01/14/19 13:55 Ordered Ice Therapy [OM.PC] Per Unit Routine Oth 01/14/19 13:55 Ordered SCD [Sequential Compression Device] [OM.PC] Routine Oth 01/14/19 08:44 Ordered Sequential Compression Device [OM.PC] Per Unit Routine Oth 01/14/19 13:54 Ordered Weight bearing status [OM.PC] Routine Oth 01/14/19 13:55 Ordered Medication Orders Aspirin (Ecotrin) 325 mg PO BID MARIIA Bisacodyl (Dulcolax) 5 mg PO DAILY PRN PRN Reason: Constipation Cyclobenzaprine HCl (Flexeril) 5 mg PO TID PRN PRN Reason: Spasms Famotidine (Pepcid) 20 mg PO Q12H [facility] Last Admin: 01/14/19 20:41 Dose: 20 mg Cefazolin Sodium/Dextrose 2 gm (/ Premix) 50 mls @ 100 mls/hr IV Q8H [facility] Stop: 01/15/19 12:29 Last Admin: 01/15/19 05:01 Dose: 100 mls/hr Infusion: 01/14/19 21:10 Dose: 100 mls/hr Admin: 01/14/19 20:40 Dose: 100 mls/hr Ketorolac Tromethamine (Toradol) 15 mg IVPUSH Q6H PRN PRN Reason: Pain (moderate 4-6) Stop: 01/19/19 00:11 Last Admin: 01/15/19 00:50 Dose: 15 mg Admin: 01/14/19 15:05 Dose: 15 mg Admin: 01/14/19 03:09 Dose: 15 mg Magnesium Hydroxide (Milk Of Magnesia) 30 ml PO BID PRN PRN Reason: Constipation Ondansetron HCl (Zofran) 4 mg IV Q6H PRN PRN Reason: Nausea/Vomiting Oxycodone/Acetaminophen (Percocet 325-5 Mg) 1 - 2 tab PO Q4H PRN PRN Reason: Pain Last Admin: 01/15/19 05:01 Dose: 2 tab Admin: 01/14/19 19:44 Dose: 2 tab Admin: 01/14/19 15:07 Dose: 2 tab Senna (Senna) 8.6 mg PO BID PRN PRN Reason: Constipation Simvastatin (Zocor) 20 mg PO BEDTIME [facility]IIA Last Admin: 01/14/19 20:40 Dose: 20 mg - Assessment Assessment (Free Text/Narrative):: POD#1 - s/p cephalomedullary bee placement for right hip fracture - Plan Plan (Free Text/Narrative):: 1. Hgb 13.0. 2. 50% weight bearing RLE. 3. Further orders per Hospitalist service. 4. 325mg ASA PO BID or VTE prophylaxis as per primary team. SCDs, TEDs, frequent mobility. The pt's case was discussed with Dr. Tadeo. Dr. Tadeo also evaluated the pt today.
[2019-01-15] MEDS ORDERED: Aspirin 325 MG Tab.EC PO SCH (09:00)
[2019-01-15] MEDS: Famotidine 20 MG Tab PO SCH (09:16)
[2019-01-15] MEDS ORDERED: Docusate Sodium 100 MG Cap PO PRN (12:08)
--- NOTE | 2019-01-15 14:50 | PCM.DCSUM1 ---
Discharge Summary - Hospital Course HPI Initial Comments: Ian is a 58-year-old male who presents to the ED after a fall at home. Ports he fell around 1820, landing on his right hip. He was able to get up but cannot bear weight due to the extreme pain. Denies any loss of consciousness or other injury. No prior hip injury or surgery. In the ED patient was only able to keep his hip flexed at 90 with a pillow under his knee. Denied any pain while in this position. Last oral intake was around 1900. 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 He also has a history of colon cancer status post hemicolectomy and a grade 1 astrocytoma status post excision in 1983. He was never a smoker. Hip x-ray was obtained showing basicervical/upper intertrochanteric fracture with mild varus angulation. Fracture isolating the greater trochanter was also noted on crosstable lateral view. He was subsequently admitted to the medical floor for planned surgical management of this fracture. Diagnosis: Stroke: No - Discharge Data Discharge Date: 01/15/19 (Admit date: ) Discharge Disposition: Home, Self-Care 01 Condition: Good - Referral to Home Health Primary Care Physician: Srinivas Mcrae MD - Discharge Diagnosis/Problem(s) (1) HLD (hyperlipidemia) SNOMED Code(s): 77291751 ICD Code: E78.5 - HYPERLIPIDEMIA, UNSPECIFIED Status: Chronic Priority: Low Current Visit: Yes Qualifiers: Hyperlipidemia type: unspecified Qualified Code(s): E78.5 - Hyperlipidemia , unspecified (2) Fracture of right hip requiring operative repair SNOMED Code(s): 263176880 ICD Code: S72.001A - FRACTURE OF UNSP PART OF NECK OF RIGHT FEMUR, INIT Status: Acute Priority: High Current Visit: Yes Qualifiers: Encounter type: initial encounter Fracture type: closed Qualified Code(s) : S72.001A - Fracture of unspecified part of neck of right femur, initial encounter for closed fracture - Patient Summary/Data Consults: Consultations 01/14/19 13:55 OT Evaluation and Treatment [CONS] Routine PT Evaluation and Treatment [CONS] Routine Labs Pending at D/C: None Recommended Follow-up Testing/Procedures: Follow-up with Orthopaedics as scheduled. Follow-up with PCP as needed. Hospital Course: Ian had a rather uneventful hospital stay. Dr. Tadeo, orthopedic surgeon performed a intramedullary nailing hip gamma of his right femur. There was minimal blood loss during the procedure. Labs and vital signs remained stable postoperatively. Patient did work with physical therapy and occupational therapy. He does report some steps going into his house and was deemed safe for discharge. He was prescribed 325/5 mg Percocet and instructed to take 1-2 tabs by mouth every 4 hours as needed for pain. He was also instructed to take 325 mg by mouth twice a day aspirin for clot prevention. He can take 5 mg by mouth 3 times a day tablet for muscle spasms. He was also prescribed 100 mg by mouth twice a day when necessary Colace for constipation. Instructed to resume his pravastatin as prior. He was instructed to continue to utilize his incentive spirometry until symptoms resolve. He should apply ice and elevate his extremity with 50% weightbearing of the right lower extremity. He was instructed not to drive. We discussed concerns over how medications can make you sleepy and also lead to constipation. He was instructed to move around every hour while awake. His was present during these discussions. He was discharged home today with outpatient physical therapy. He was given home exercises to perform by PT. - Patient Instructions Diet: Usual Diet as Tolerated Activity: Apply Ice, As Tolerated, Elevate Extremity Activity, Other: 50% weight bearing right lower extremity Driving: Do Not Drive Showering/Bathing: May Shower Wound/Incision Care: Keep Operative Site/Wound Site Clean and Dry, Do NOT Change Dressing Notify Provider of: Fever, Increased Pain, Swelling and Redness, Drainage, Nausea and/or Vomiting Other/Special Instructions: Please get up and moving around EVERY HOUR while awake. This helps to prevent blood clots. Please use your walker and have help with mobility as needed. Take a short walk in your home every hour while awake. Please take 325mg Aspirin TWICE daily. The aspirin is being used for blood clot prevention and not for pain management so please do not miss a dose of the medication. You could use a medication like Pepcid or Tagamet and a medication like Prilosec or Nexium to protect your stomach while you are using the aspirin. At home, please complete the exercises that you learned during the Hospital stay. Use the pain medication as needed. The medication may cause drowsiness and constipation. Contact your primary care provider for instructions if you are constipated. You may use a stool softener like docusate sodium or Colace 100mg twice daily and/or a laxative like Miralax daily for constipation. Increase your water and fiber intake while you are using the pain medication. Discontinue use of the pain medication as soon as able. Please do not use other medications that may cause drowsiness (other pain medications, anxiety pills, cold medications, sleeping pills, etc) while using the prescription pain medication. Do not use alcohol while using the pain medication. You may use acetaminophen or Tylenol for pain management, however, please ensure you are not using over 4000 mg or 4 grams of acetaminophen per day from all sources. Your pain medication has 325mg of acetaminophen per tablet. At this time, please do not use ibuprofen (Motrin, Advil) or naproxen (Aleve) for pain management as you are using the aspirin. When the aspirin course is completed in 4 to 6 weeks, you could use ibuprofen or naproxen for pain management (if this is allowed by your primary care provider). Wear the HENRY hose during the day and you may remove these at night. Elevate the limb to decrease swelling. Place ice to the area often. Place a towel between your skin and the blue pad. Use the incentive spirometer often. Take deep breaths throughout the day. Please keep the dressing in place until follow-up. Notify the Clinic if the dressing becomes saturated. Increase your protein intake while you are healing. If you have diabetes, please closely monitor your blood sugars and notify your primary care provider with abnormal values. Elevated blood sugars increases the risk of infection. Call the Clinic with questions or concerns - [phone]. - Discharge Plan *PRESCRIPTION DRUG MONITORING PROGRAM REVIEWED*: Not Applicable *COPY OF PRESCRIPTION DRUG MONITORING REPORT IN PATIENT BABS: Not Applicable Prescriptions/Med Rec: Acetaminophen/oxyCODONE [Percocet 325-5 MG] 1 - 2 tab PO Q4H PRN #60 tablet PRN Reason: Pain Aspirin [Ecotrin EC] 325 mg PO BID #84 tab.ec Cyclobenzaprine [Flexeril] 5 mg PO TID PRN #40 tablet PRN Reason: Spasms Docusate Sodium [Colace] 100 mg PO BID PRN #20 cap PRN Reason: Constipation Home Medications: Home Meds Pravastatin [Pravachol] 40 mg PO BEDTIME 01/14/19 [History] Acetaminophen/oxyCODONE [Percocet 325-5 MG] 1 - 2 tab PO Q4H PRN #60 tablet [Rx] Aspirin [Ecotrin EC] 325 mg PO BID #84 tab.ec 01/15/19 [Rx] Cyclobenzaprine [Flexeril] 5 mg PO TID PRN #40 tablet 01/15/19 [Rx] Docusate Sodium [Colace] 100 mg PO BID PRN #20 cap 01/15/19 [Rx] Oxygen Therapy Mode: Room Air Patient Handouts: Open Reduction and Internal Fixation for Hip Fracture Referrals: Rakel Tamayo PA-C [Physician [facility]] - 01/22/19 11:30 am (Your follow up appointments will be with Rakel Tamayo on 12/28/18 at 1130 am 01/29/19 at 1000 am 02/28/19 at 1130 am) - Discharge Summary/Plan Comment DC Time >30 min.: Yes (45 mins ) - General Info Date of Service: 01/15/19 Admission Dx/Problem (Free Text: Admission Diagnosis/Problem Admission Diagnosis/Problem Hip fracture requiring operative repair Functional Status: Reports: Pain Controlled, Tolerating Diet, Ambulating, Urinating, Incentive Spirometry. Denies: New Symptoms - Review of Systems General: Reports: No Symptoms. Denies: Fever, Weakness, Fatigue, Malaise, Chills HEENT: Reports: No Symptoms. Denies: Headaches, Sore Throat Pulmonary: Reports: No Symptoms. Denies: Shortness of Breath, Cough, Sputum, Wheezing Cardiovascular: Reports: No Symptoms. Denies: Chest Pain, Palpitations, Dyspnea on Exertion Gastrointestinal: Reports: No Symptoms. Denies: Abdominal Pain, Constipation, Diarrhea, Nausea, Vomiting Genitourinary: Reports: No Symptoms. Denies: Pain Musculoskeletal: Reports: Leg Pain (right leg) Skin: Reports: No Symptoms. Denies: Cyanosis Neurological: Reports: Pre-Existing Deficit (right sided weakness 2/2 CVA ), Difficulty Walking, Gait Disturbance. Denies: Confusion Psychiatric: Reports: No Symptoms - Patient Data Vitals - Most Recent: Last Vital Signs Temp 98.4 F 01/15/19 11:56 Pulse 74 01/15/19 11:56 Resp 16 11/20/19 11:56 BP 125/71 01/15/19 11:56 Pulse Ox 94 L 01/15/19 11:56 Weight - Most Recent: 207 lb I&O - Last 24 hours: Intake & Output 01/14/19 01/15/19 01/15/19 22:59 06:59 14:59 Intake Total 3055 850 180 Output Total 100 1800 Balance 2955 -950 180 Lab Results - Last 24 hrs: Laboratory Results - last 24 hr 01/14/19 01/14/19 01/15/19 Range/Units 14:25 14:55 04:40 WBC 6.70 (4.23-9.07) K/mm3 RBC 4.32 L (4.63-6.08) M/mm3 Hgb 13.5 L 13.0 L (13.7-17.5) gm/dl Hct 40.4 (40.1-51.0) % MCV 93.5 H (79.0-92.2) fl MCH 30.1 (25.7-32.2) pg MCHC 32.2 (32.2-35.5) g/dl RDW Std Deviation 43.4 (35.1-43.9) fL Plt Count 185 (163-337) K/mm3 MPV 9.5 (9.4-12.3) fl Sodium 139 (136-145) mEq/L Potassium 4.4 (3.5-5.1) mEq/L Chloride 107 (98-107) mEq/L Carbon Dioxide 24 (21-32) mEq/L Anion Gap 12.4 (5-15) BUN 19 H (7-18) mg/dL Creatinine 1.0 (0.7-1.3) mg/dL Est Cr Clr Drug Dosing 89.46 mL/min Estimated GFR (MDRD) > 60 (>60) mL/min BUN/Creatinine Ratio 19.0 H (14-18) Glucose 123 H (74-106) mg/dL Calcium 8.4 L (8.5-10.1) mg/dL Phosphorus 3.1 (2.6-4.7) mg/dL Magnesium 1.9 (1.8-2.4) mg/dl Total Bilirubin (0.2-1.0) mg/dL AST (15-37) U/L ALT (16-63) U/L Alkaline Phosphatase (46-116) U/L Total Protein (6.4-8.2) g/dl Albumin (3.4-5.0) g/dl Globulin gm/dL Albumin/Globulin Ratio (1-2) 01/15/19 01/15/19 Range/Units 04:40 04:40 WBC (4.23-9.07) K/mm3 RBC (4.63-6.08) M/mm3 Hgb (13.7-17.5) gm/dl Hct (40.1-51.0) % MCV (79.0-92.2) fl MCH (25.7-32.2) pg MCHC (32.2-35.5) g/dl RDW Std Deviation (35.1-43.9) fL Plt Count (163-337) K/mm3 MPV (9.4-12.3) fl Sodium 143 (136-145) mEq/L Potassium 4.6 (3.5-5.1) mEq/L Chloride 108 H (98-107) mEq/L Carbon Dioxide 28 (21-32) mEq/L Anion Gap 11.6 (5-15) BUN 15 (7-18) mg/dL Creatinine 1.1 (0.7-1.3) mg/dL Est Cr Clr Drug Dosing 81.32 mL/min Estimated GFR (MDRD) > 60 (>60) mL/min BUN/Creatinine Ratio 13.6 L (14-18) Glucose 108 H (74-106) mg/dL Calcium 8.4 L (8.5-10.1) mg/dL Phosphorus (2.6-4.7) mg/dL Magnesium 2.0 (1.8-2.4) mg/dl Total Bilirubin 0.7 (0.2-1.0) mg/dL AST 19 (15-37) U/L ALT 36 (16-63) U/L Alkaline Phosphatase 92 (46-116) U/L Total Protein 6.1 L (6.4-8.2) g/dl Albumin 3.1 L (3.4-5.0) g/dl Globulin 3.0 gm/dL Albumin/Globulin Ratio 1.0 (1-2) Med Orders - Current: Current Medications Aspirin (Ecotrin) 325 mg PO BID MARIIA Last Admin: 01/15/19 09:16 Dose: 325 mg Bisacodyl (Dulcolax) 5 mg PO DAILY PRN PRN Reason: Constipation Cyclobenzaprine HCl (Flexeril) 5 mg PO TID PRN PRN Reason: Spasms Last Admin: 01/15/19 12:06 Dose: 5 mg Docusate Sodium (Colace) 100 mg PO BID PRN PRN Reason: Constipation Last Admin: 01/15/19 13:20 Dose: 100 mg Famotidine (Pepcid) 20 mg PO Q12H MARIIA Last Admin: 01/15/19 09:16 Dose: 20 mg Ketorolac Tromethamine (Toradol) 15 mg IVPUSH Q6H PRN PRN Reason: Pain (moderate 4-6) Stop: 01/19/19 00:11 Last Admin: 01/15/19 11:38 Dose: 15 mg Magnesium Hydroxide (Milk Of Magnesia) 30 ml PO BID PRN PRN Reason: Constipation Ondansetron HCl (Zofran) 4 mg IV Q6H PRN PRN Reason: Nausea/Vomiting Oxycodone/Acetaminophen (Percocet 325-5 Mg) 1 - 2 tab PO Q4H PRN PRN Reason: Pain Last Admin: 01/15/19 13:20 Dose: 2 tab Senna (Senna) 8.6 mg PO BID PRN PRN Reason: Constipation Simvastatin (Zocor) 20 mg PO BEDTIME [facility] Last Admin: 01/14/19 20:40 Dose: 20 mg Discontinued Medications Bupivacaine HCl (Sensorcaine-Mpf 0.25%) Confirm Administered Dose 30 ml .ROUTE .STK-MED ONE Stop: 01/14/19 11:19 Last Admin: 01/14/19 13:32 Dose: 14 ml Bupivacaine HCl (Sensorcaine-Mpf 0.25%) Confirm Administered Dose 10 ml .ROUTE .STK-MED ONE Stop: 01/14/19 11:46 Cefazolin Sodium (Ancef) Confirm Administered Dose 2 gm .ROUTE .STK-MED ONE Stop: 01/14/19 11:57 Diphenhydramine HCl (Benadryl) 25 mg IVPUSH Q6H PRN PRN Reason: pruritis Stop: 01/14/19 17:00 Ephedrine Sulfate (Ephedrine In Ns) Confirm Administered Dose 25 mg .ROUTE .STK- MED ONE Stop: 01/14/19 11:58 Ephedrine Sulfate (Ephedrine Sulfate) 5 mg IVPUSH ASDIRECTED PRN PRN Reason: Hypotension Stop: 01/14/19 17:00 Fentanyl (Sublimaze) Confirm Administered Dose 100 mcg .ROUTE .STK-MED ONE Stop: 01/14/19 10:42 Fentanyl (Sublimaze) Confirm Administered Dose 100 mcg .ROUTE .STK-MED ONE Stop: 01/14/19 11:43 Hydromorphone HCl (Dilaudid) 1 mg IVPUSH ONETIME ONE Stop: 01/13/19 20:07 Last Admin: 01/13/19 20:13 Dose: 1 mg Hydromorphone HCl (Dilaudid) 1 mg IVPUSH ONETIME ONE Stop: 01/13/19 21:25 Last Admin: 01/13/19 21:27 Dose: 1 mg Hydromorphone HCl (Dilaudid) Confirm Administered Dose 1 mg .ROUTE .STK-MED ONE Stop: 01/13/19 21:27 Last Admin: 01/13/19 22:14 Dose: Not Given Sodium Chloride (Normal Saline) 1,000 mls @ 100 mls/hr IV ASDIRECTED [facility] Last Admin: 01/14/19 05:44 Dose: 100 mls/hr Lactated Ringer's (Ringers, Lactated) Confirm Administered Dose 1,000 mls @ as directed .ROUTE .STK-MED ONE Stop: 01/14/19 12:13 Cefazolin Sodium/Dextrose 2 gm (/ Premix) 50 mls @ 100 mls/hr IV Q8H [facility] Stop: 01/15/19 12:29 Last Admin: 01/15/19 11:39 Dose: 100 mls/hr Lactated Ringer's (Ringers, Lactated) 1,000 mls @ 75 mls/hr IV ASDIRECTED [facility] Last Admin: 01/14/19 14:58 Dose: 75 mls/hr Ketorolac Tromethamine (Toradol) 15 mg IVPUSH Q6H PRN PRN Reason: Pain Midazolam HCl (Versed 1 Mg/Ml) Confirm Administered Dose 2 mg .ROUTE .STK-MED ONE Stop: 01/14/19 10:42 Morphine Sulfate (Morphine) 1 mg IVPUSH Q2H PRN PRN Reason: Pain (severe 7-10) Stop: 01/15/19 00:13 Last Admin: 01/14/19 00:28 Dose: 1 mg Ondansetron HCl (Zofran) 4 mg IVPUSH ONETIME ONE Stop: 01/13/19 20:07 Last Admin: 01/13/19 20:12 Dose: 4 mg Ondansetron HCl (Zofran) Confirm Administered Dose 4 mg .ROUTE .STK-MED ONE Stop: 01/14/19 11:42 Ondansetron HCl (Zofran) 4 mg IVPUSH ONETIME PRN PRN Reason: Nausea/Vomiting Stop: 01/14/19 17:00 Propofol (Diprivan 20 Ml) Confirm Administered Dose 400 mg .ROUTE .STK-MED ONE Stop: 01/14/19 10:41 Propofol (Diprivan 20 Ml) Confirm Administered Dose 200 mg .ROUTE .STK-MED ONE Stop: 01/14/19 11:43 Propofol (Diprivan 20 Ml) Confirm Administered Dose 200 mg .ROUTE .STK-MED ONE Stop: 01/14/19 12:31 Propofol (Diprivan 20 Ml) Confirm Administered Dose 200 mg .ROUTE .STK-MED ONE Stop: 01/14/19 13:08 - Exam Quality Assessment: Reports: DVT Prophylaxis General: Reports: Alert, Oriented, Cooperative, No Acute Distress HEENT: Reports: Pupils Equal, Pupils Reactive, Mucous Membr. Moist/Cromberg Neck: Reports: Supple, Trachea Midline Lungs: Reports: Clear to Auscultation, Normal Respiratory Effort Cardiovascular: Reports: Regular Rate, Regular Rhythm GI/Abdominal Exam: Normal Bowel Sounds, Soft, Non-Tender, No Distention, No Abnormal Bruit (Male) Exam: Deferred Rectal (Males) Exam: Deferred Back Exam: Reports: Normal Inspection, Full Range of Motion Extremities: No Pedal Edema, Normal Capillary Refill, Leg Pain, Limited Range of Motion, Other (Bandage in place on right leg. Cooling pack in place ) Skin: Reports: Warm, Dry, Intact Wound/Incisions: Reports: Dressing Dry and Intact Neurological: Reports: No New Focal Deficit Psy/Mental Status: Reports: Alert, Normal Affect, Normal Mood
--- NOTE | 2019-01-20 09:30 | PCM.OPNOTE ---
- General Post-Op/Procedure Note Date of Surgery/Procedure: 01/14/19 Operative Procedure(s): cephalomedullary nailing of right intertrochanteric hip fracture Pre Op Diagnosis: right intertrochanteric hip fracture Post-Op Diagnosis: Same Anesthesia Technique: Local, MAC, Spinal Primary Surgeon: Abdoul Tadeo Anesthesia Provider: Foster Belle Insurance Examiner: Rakel Tamayo EBL in mLs: 50 Complications: None Condition: Good
--- NOTE | 2019-01-20 10:05 | CONS ---
CONSULTING PHYSICIAN: Abdoul Tadeo MD DATE OF CONSULTATION: 01/13/2019 HISTORY OF PRESENT ILLNESS: This is a 58-year-old male who comes in on 01/13/2019, after falling and sustaining a right lower extremity injury. The patient denied any previous pain or injury to the right lower extremity before this happened, but did have hemiparesis on the right side secondary to a stroke previously along with previous brain tumor. The patient was found to have a displaced right intertrochanteric fracture, and we were consulted. He otherwise has not been using ambulatory assistive devices and denies any previous pain or injury. PHYSICAL EXAMINATION: VITAL SIGNS: Afebrile. Vital signs are stable. GENERAL: The patient is alert and in no acute distress. MUSCULOSKELETAL: The patient is lying supine with his hip in a flexed and externally rotated position. He does have significant pain with any motion of the right lower extremity. He does have the previous contractures noted to the right lower extremity secondary to his stroke, but he is otherwise neurovascularly intact to light touch to L2 through S1. He is able to dorsiflex and plantarflex his ankle. RADIOGRAPHS: Reviewed showing a displaced basicervical/intertrochanteric fracture of the right hip. ASSESSMENT: Right intertrochanteric hip fracture. PLAN: At this time, I did discuss with him and his that, at this time, this would require surgical intervention. It is in a spot in the basicervical region where we will plan on doing a cephalomedullary device. Even if it were to fail, then we would have to do a long-stemmed diaphyseal fit total hip arthroplasty. I did discuss the risks, benefits, complications, and alternatives to surgery, and they are agreeing to go ahead with the procedure. Consent was signed at this time. MMODAL /[id number]
--- NOTE | 2019-01-20 10:23 | OR ---
DATE OF OPERATION: 01/14/2019 SURGEON: Abdoul Tadeo MD OPERATION PERFORMED: Cephalomedullary nailing of right intertrochanteric hip fracture. PREOPERATIVE DIAGNOSIS: Right intertrochanteric hip fracture. POSTOPERATIVE DIAGNOSIS: Right intertrochanteric hip fracture. ANESTHESIA: Local MAC with spinal. ANESTHESIA PROVIDER: Foster Belle CRNA JUMPBASTING MACHINE OPERATOR: Rakel Tamayo PA-C ESTIMATED BLOOD LOSS: 50 mL. COMPLICATIONS: None. CONDITION: Stable. IMPLANTS: [place] short gamma nail. DESCRIPTION OF PROCEDURE: The patient was identified in the preop holding area. Proper site was marked and identified by surgeon. The patient was taken back to the operating theater, the patient then underwent adequate anesthesia, and was placed supine on a traction table. Traction boots were applied to the right and left lower extremities. The left lower extremity was placed in a traction boot, but no traction was applied and was placed in dependent position. Right lower extremity was placed in a traction boot, and gross traction was applied. At this time, the right hip was then sterilely prepped and draped in the usual sterile fashion. OR time-out was performed. The patient received 2 g of IV Ancef. Provisional reduction was done and was found to be adequate. At this time on the lateral view, the femoral neck component was displaced anteriorly some, so I did decide that I would have to make a small incision anteriorly to reduce it using a picador. An incision was made superior to greater trochanter. Guide pin was placed in a center-center position of the greater trochanter in both AP and lateral views. The opening reamer was then utilized. The [place] short gamma nail was then placed and was found to be at proper position. At this time, I did make a small incision anteriorly and with lateral C-arm fluoroscopy, it was found to have adequate reduction of the neck in both AP and lateral views, and the guide pin for the cephalomedullary compression screw was then placed. It was found to be in adequate position with adequate reduction. The step reamer was then used for 105 mm screw, and the screw was applied. The set screw was then applied to hold it in place, and the distal interlock screw was then placed in a static fashion. It was found to have adequate anatomic reduction in both AP and lateral views. Adequate saline was irrigated through all wound incisions. 0 Vicryl was used for closure of the gluteal fascia. 2-0 Vicryl was used subcutaneously. Lula used for the skin. The patient had a sterile soft dressing applied and was sent to the PACU in stable condition. SHEELA /[id number]
== END 2019-01-15 16:48 | disposition home or self-care (01) | DRG 308 ==
LOC: JD.ED 19:51 → JD.MS 22:04
PROVIDERS: ADMIT Internal Medicine; ATTEND Internal Medicine
PROC: 0QS634Z Reposition Right Upper Femur with Internal Fixation Device, Percutaneous Approach (ICD-10-PCS; principal; 2019-01-14)
DX: S72.141A Displaced intertrochanteric fracture of right femur, initial encounter for closed fracture (principal); I69.351 Hemiplegia and hemiparesis following cerebral infarction affecting right dominant side; E78.5 Hyperlipidemia, unspecified; E78.00 Pure hypercholesterolemia, unspecified; Z79.82 Long term (current) use of aspirin; Z79.899 Other long term (current) drug therapy; W01.10XA Fall on same level from slipping, tripping and stumbling with subsequent striking against unspecified object, initial encounter
CPT/HCPCS: 01230; 36415; 51701; 51798; 73501-26-RT; 73501-RT; 73502-26-RT; 73502-RT; 76000; 76000-26; 80048; 80053; 83735; 84100; 85018; 85025; 85027; 85610; 87641; 93005; 96374; 96375; 96376; 97110-GP; 97116-GP; 97161-GP; 97165-GO; 97535-GO; 99284-25; 99285; A9270-GY; C1713; C1776; J0690; J1170; J1885; J2250; J2270; J2405; J2704; J3010; J3490; J7040; J7050; J7120

== ENCOUNTER 2019-12-20 09:56 | Emergency (ER) | payer BC ==
[2019-12-20] MEDS ORDERED: Alum Hydrox/Mag Hydrox/Simeth 30 ML, Lidocaine 2% 15 ML PO ONE ×2 (10:28)
--- NOTE | 2019-12-20 12:18 | EDM.PDOC ---
ED HPI GENERAL MEDICAL PROBLEM - General Chief Complaint: Chest Pain Stated Complaint: CHEST PAIN Time Seen by Provider: 12/20/19 10:19 Source of Information: Reports: Patient, RN Notes Reviewed - History of Present Illness INITIAL COMMENTS - FREE TEXT/NARRATIVE: 59 yr old male comes in with ant. chest discomfort. This started early this AM about 7 hrs ago with mild upper abd discomfort that has gradually moved to mid and upper central chest. He did take some antacid at home with little change. He has a knee replacment surgery scheduled for about 2 days from now so is a bit stressed out over that. Hx of occasional GERD Chest Pain Score (Numeric/FACES): 5 - Related Data Allergies Allergy/AdvReac Type Severity Reaction Status Date / Time No Known Allergies Allergy Verified 12/20/19 10:15 Home Meds: Home Meds Pravastatin [Pravachol] 40 mg PO BEDTIME 01/14/19 [History] Cholecalciferol (Vitamin D3) [Vitamin D3] 5,000 unit PO DAILY 12/19/19 [History] Diclofenac Sodium [Voltaren 1% Gel] 1 dose TOP QID PRN 12/19/19 [History] Ibuprofen 200 - 600 mg PO Q4H PRN 12/19/19 [History] Multivitamin [Multi-Day Vitamins] 1 tab PO DAILY 12/19/19 [History] Past Medical History HEENT History: Reports: Impaired Vision Other HEENT History: wears eyeglasses. Cardiovascular History: Reports: High Cholesterol Musculoskeletal History: Reports: Fracture, Osteoarthritis Other Musculoskeletal History: steroid injection R kneex1 Neurological History: Reports: CVA, Other (See Below) Other Neuro History: R foot drop and general weakness in R leg, R facial droop and slight slurred speech- wears brace. Brain tumor 1992 with radiation Tx. 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 R side of ear/face basal cell carcinoma Dermatologic History: Reports: Other (See Below) Other Dermatologic History: alopecia - Infectious Disease History Infectious Disease History: Reports: Chicken Pox, Measles - Past Surgical History Head Surgeries/Procedures: Reports: Craniotomy GI Surgical History: Reports: Colon, Colonoscopy Other GI Surgeries/Procedures: bowel resection- 2012 stage 3 colon cancer Male Surgical History: Reports: Varicocele Resection Neurological Surgical History: Reports: Other (See Below) Other Neurological Surgeries/Procedures: brain tumor. Musculoskeletal Surgical History: Reports: Other (See Below) Other Musculoskeletal Surgeries/Procedures:: R) hip fx repair. Social & Family History - Family History Family Medical History: Noncontributory - Tobacco Use Tobacco Use Status *Q: Never Tobacco User Second Hand Smoke Exposure: No - Caffeine Use Caffeine Use: Reports: Coffee Other Caffeine Use: 2-3 cups/day - Recreational Drug Use Recreational Drug Use: No - Living Situation & Occupation Living situation: Reports: , with Spouse Occupation: Employed ([employer]) ED ROS GENERAL - Review of Systems Review Of Systems: See Below Constitutional: Denies: Fever, Chills HEENT: Reports: No Symptoms Respiratory: Denies: Shortness of Breath, Pleuritic Chest Pain, Cough Cardiovascular: Reports: Chest Pain GI/Abdominal: Denies: Abdominal Pain, Nausea, Vomiting Musculoskeletal: Reports: Neck Pain (mild chronic). Denies: Shoulder Pain, Arm Pain, Back Pain Skin: Reports: No Symptoms Neurological: Reports: No Symptoms ED EXAM, GENERAL - Physical Exam Exam: See Below General Appearance: Alert, Anxious Eye Exam: Bilateral Eye: PERRL Head: Atraumatic. No: Facial Swelling Neck: Supple Respiratory/Chest: No Respiratory Distress, Lungs Clear, Normal Breath Sounds Cardiovascular: Regular Rate, Rhythm, Other (chest wall nontender) GI/Abdominal: Soft, Non-Tender Extremities: Normal Inspection. No: Pedal Edema, Leg Pain Neurological: Alert, Oriented, No Motor/Sensory Deficits Skin Exam: Warm, Dry, Normal Color, No Rash Course - Vital Signs Last Recorded V/S: Last Vital Signs Temp 96.9 F 12/20/19 10:00 Pulse 92 12/20/19 10:00 Resp 20 12/20/19 10:00 BP 150/89 H 12/20/19 10:00 Pulse Ox 99 12/20/19 10:00 - Orders/Labs/Meds Orders: Active Orders 24 hr Category Date Time Status EKG 12 Lead [EKG Documentation Completion] [RC] STAT Care 12/20/19 10:28 Active EKG 12 Lead [EKG Documentation Completion] [RC] STAT Care 12/20/19 12:08 Active EKG 12 Lead [EKG Documentation Completion] [RC] STAT Care 12/20/19 13:32 Active Chest 1V Frontal [CR] Stat Exams 12/20/19 10:28 Taken CBC W/O DIFF,HEMOGRAM [HEME] MOTH@0700 Lab 12/22/19 07:00 Ordered CBC W/O DIFF,HEMOGRAM [HEME] MOTH@0700 Lab 12/25/19 07:00 Ordered CBC W/O DIFF,HEMOGRAM [HEME] MOTH@0700 Lab 12/29/19 07:00 Ordered CBC W/O DIFF,HEMOGRAM [HEME] MOTH@0700 Lab 01/01/20 07:00 Ordered CBC W/O DIFF,HEMOGRAM [HEME] MOTH@0700 Lab 01/05/20 07:00 Ordered CBC W/O DIFF,HEMOGRAM [HEME] MOTH@0700 Lab 01/08/20 07:00 Ordered Heparin Sodium/D5W [Heparin 25,000 Units in D5W 500 ML] Med 12/20/19 12:30 Active 25,000 units in 500 ml IV TITRATE Medication Orders Heparin Sodium/Dextrose (Heparin 25,000 Units In D5w 500 Ml) 25,000 units in 500 mls @ 21.772 mls/hr IV TITRATE [facility]; Protocol Last Admin: 12/20/19 12:36 Dose: 12 units/kg/hr, 21.772 mls/hr Documented by: CLEMENT Cosigned by: SAIGE Labs: Laboratory Tests 12/20/19 12/20/19 12/20/19 Range/Units 10:10 10:10 10:10 WBC 12.16 H (4.23-9.07) K/mm3 RBC 5.18 (4.63-6.08) M/mm3 Hgb 16.0 D (13.7-17.5) gm/dl Hct 47.6 (40.1-51.0) % MCV 91.9 (79.0-92.2) fl MCH 30.9 (25.7-32.2) pg MCHC 33.6 (32.2-35.5) g/dl RDW Std Deviation 41.1 (35.1-43.9) fL Plt Count 201 (163-337) K/mm3 MPV 10.1 (9.4-12.3) fl Neut % (Auto) 87.9 H (34.0-67.9) % Lymph % (Auto) 5.3 L (21.8-53.1) % Rankin % (Auto) 6.2 (5.3-12.2) % Eos % (Auto) 0.2 L (0.8-7.0) Baso % (Auto) 0.2 (0.1-1.2) % Neut # (Auto) 10.69 H (1.78-5.38) K/mm3 Lymph # (Auto) 0.65 L (1.32-3.57) K/mm3 Rankin # (Auto) 0.75 (0.30-0.82) K/mm3 Eos # (Auto) 0.03 L (0.04-0.54) K/mm3 Baso # (Auto) 0.02 (0.01-0.08) K/mm3 Manual Slide Review Abnormal smear PT (9.7-12.0) SECONDS INR APTT (21.7-31.4) SECONDS Sodium 140 (136-145) mEq/L Potassium 4.2 (3.5-5.1) mEq/L Chloride 102 (98-107) mEq/L Carbon Dioxide 30 (21-32) mEq/L Anion Gap 12.2 (5-15) BUN 17 (7-18) mg/dL Creatinine 1.2 (0.7-1.3) mg/dL Est Cr Clr Drug Dosing 73.65 mL/min Estimated GFR (MDRD) > 60 (>60) mL/min BUN/Creatinine Ratio 14.2 (14-18) Glucose 112 H (74-106) mg/dL Calcium 9.3 (8.5-10.1) mg/dL Total Bilirubin 0.6 (0.2-1.0) mg/dL AST 24 (15-37) U/L ALT 67 H (16-63) U/L Alkaline Phosphatase 122 H (46-116) U/L CK-MB (CK-2) 1.0 (0-3.6) ng/ml Troponin I < 0.017 (0.00-0.056) ng/mL Total Protein 7.7 (6.4-8.2) g/dl Albumin 4.2 (3.4-5.0) g/dl Globulin 3.5 gm/dL Albumin/Globulin Ratio 1.2 (1-2) 12/20/19 12/20/19 12/20/19 Range/Units 10:10 12:19 15:36 WBC (4.23-9.07) K/mm3 RBC (4.63-6.08) M/mm3 Hgb (13.7-17.5) gm/dl Hct (40.1-51.0) % MCV (79.0-92.2) fl MCH (25.7-32.2) pg MCHC (32.2-35.5) g/dl RDW Std Deviation (35.1-43.9) fL Plt Count (163-337) K/mm3 MPV (9.4-12.3) fl Neut % (Auto) (34.0-67.9) % Lymph % (Auto) (21.8-53.1) % Rankin % (Auto) (5.3-12.2) % Eos % (Auto) (0.8-7.0) Baso % (Auto) (0.1-1.2) % Neut # (Auto) (1.78-5.38) K/mm3 Lymph # (Auto) (1.32-3.57) K/mm3 Rankin # (Auto) (0.30-0.82) K/mm3 Eos # (Auto) (0.04-0.54) K/mm3 Baso # (Auto) (0.01-0.08) K/mm3 Manual Slide Review PT 10.9 (9.7-12.0) SECONDS INR 1.02 APTT 27.1 (21.7-31.4) SECONDS Sodium (136-145) mEq/L Potassium (3.5-5.1) mEq/L Chloride (98-107) mEq/L Carbon Dioxide (21-32) mEq/L Anion Gap (5-15) BUN (7-18) mg/dL Creatinine (0.7-1.3) mg/dL Est Cr Clr Drug Dosing mL/min Estimated GFR (MDRD) (>60) mL/min BUN/Creatinine Ratio (14-18) Glucose (74-106) mg/dL Calcium (8.5-10.1) mg/dL Total Bilirubin (0.2-1.0) mg/dL AST (15-37) U/L ALT (16-63) U/L Alkaline Phosphatase (46-116) U/L CK-MB (CK-2) (0-3.6) ng/ml Troponin I < 0.017 < 0.017 (0.00-0.056) ng/mL Total Protein (6.4-8.2) g/dl Albumin (3.4-5.0) g/dl Globulin gm/dL Albumin/Globulin Ratio (1-2) Meds: Medications Generic Name Dose Route Start Last Admin Trade Name Freq PRN Reason Stop Dose Admin Heparin Sodium/Dextrose 25,000 units in 500 mls @ 21.772 mls/hr 12/20/19 12:30 12/20/19 12:36 Heparin 25,000 Units In D5w 500 Ml IV 12 units/kg/hr TITRATE MARIIA 21.772 mls/hr Administration Protocol 12 UNITS/KG/HR Discontinued Medications Generic Name Dose Route Start Last Admin Trade Name Freq PRN Reason Stop Dose Admin Aspirin 324 mg 12/20/19 12:19 12/20/19 12:33 Aspirin PO 12/20/19 12:20 324 mg ONETIME ONE Administration Al Hydroxide/Mg Hydroxide 30 0 ml 12/20/19 10:28 12/20/19 10:48 ml/ Lidocaine HCl 15 ml PO 12/20/19 10:29 45 ml ONETIME ONE Administration Heparin Sodium (Porcine) 4,000 units 12/20/19 12:23 12/20/19 12:32 Heparin Sodium IVPUSH 12/20/19 12:24 Not Given ONETIME ONE Heparin Sodium (Porcine) 4,000 units 12/20/19 12:26 12/20/19 12:31 Heparin Sodium IVPUSH 12/20/19 12:27 4,000 units .BOLUS ONE Administration Nitroglycerin 1 gm 12/20/19 12:19 12/20/19 12:29 Nitro-Bid 2% TOP 12/20/19 12:20 1 gm ONETIME ONE Administration - Re-Assessments/Exams Free Text/Narrative Re-Assessment/Exam: 12/20/19 12:35. Initial trop came back normal, pt is anxious, still having mild upper chest discomfort. GI cocktail gave mild but not complete relief. Now he feels worse, having what he describes as severe post. neck discomfort. Repeat EKG shows more upsloping of ST Lead 1 and AVL. about 1/[address] elevation 1 and AVL not apparent on first EKG. Have given aspirin 325 PO. Have given heparin bolus 4000 units and started a 1000 unit per hr heparin drip. CXR normal. 12/20/19 12:45. Have consulted Cardiology, Balbir Buenrostro. Have sent EKG's for Dr Huizar, Order Fulfillment Specialist to review. Waiting for him to call back with further advice. Awaiting 2nd trop. 13:00. Dr Leonard has reviewed the EKG's. He does not see acute infarct. Suggests getting a repeat EKG in about 30 minutes. 12/20/19 13:20. Repeat trop also neg. Dr Carrillo also feels with onset of sx now now 8- 9 hours ago his trop should have been positive for any serious cardiac event. With his scheduled knee surgery Sunday, increased stress and anxiety over that and current sx of today will watch him for another 2 hours, get a 3rd troponin at around 15:15. 12/20/19 14:20. resting comfortably, chest discomfort is gone, posterior neck discomfort is better. Repeat EKG is similar to EKG #2. I did send this to Dr Huizar, Order Fulfillment Specialist as well. He agrees with plan to check a repeat trop. in 1 hour to be extra safe. 12/20/19 16:21 3rd trop is also normal. Resting comfortably. Has been in NSR, no ectopy. Will discharge home at this time. Departure - Departure Time of Disposition: 16:22 Disposition: Home, Self-Care 01 Condition: Fair Clinical Impression: Atypical chest pain GERD (gastroesophageal reflux disease) Qualifiers: Esophagitis presence: without esophagitis Qualified Code(s): K21.9 - Gastro- esophageal reflux disease without esophagitis Referrals: Srinivas Mcrae MD [Primary Care Provider] - Forms: ED Department Discharge Additional Instructions: Avoid spicy foods for the next several days. Chocolate, alcohol and caffiene can also make acid reflux worse. Return to ED as needed if symptoms worsening in any way. See your regular medical provider in about 5 to 10 days for recheck. Sepsis Event Note (ED) - Evaluation Sepsis Screening Result: No Definite Risk - Focused Exam Vital Signs: Vital Signs Temp Pulse Resp BP Pulse Ox 12/20/19 10:00 96.9 F 92 20 150/89 H 99 - My Orders Last 24 Hours: My Active Orders 10/24/20 10:28 EKG 12 Lead [EKG Documentation Completion] [RC] STAT Chest 1V Frontal [CR] Stat 12/20/19 12:08 EKG 12 Lead [EKG Documentation Completion] [RC] STAT 12/20/19 12:30 Heparin Sodium/D5W [Heparin 25,000 Units in D5W 500 ML] 25,000 units in 500 ml IV TITRATE 12/20/19 13:32 EKG 12 Lead [EKG Documentation Completion] [RC] STAT 12/22/19 07:00 CBC W/O DIFF,HEMOGRAM [HEME] MOTH@69912/25/19 07:00 CBC W/O DIFF,HEMOGRAM [HEME] MOTH@69912/29/19 07:00 CBC W/O DIFF,HEMOGRAM [HEME] MOTH@69901/01/20 07:00 CBC W/O DIFF,HEMOGRAM [HEME] MOTH@69901/05/20 07:00 CBC W/O DIFF,HEMOGRAM [HEME] MOTH@69901/08/20 07:00 CBC W/O DIFF,HEMOGRAM [HEME] MOTH@699 - Assessment/Plan Last 24 Hours: My Active Orders 12/20/19 10:28 EKG 12 Lead [EKG Documentation Completion] [RC] STAT Chest 1V Frontal [CR] Stat 12/20/19 12:08 EKG 12 Lead [EKG Documentation Completion] [RC] STAT 12/20/19 12:30 Heparin Sodium/D5W [Heparin 25,000 Units in D5W 500 ML] 25,000 units in 500 ml IV TITRATE 12/20/19 13:32 EKG 12 Lead [EKG Documentation Completion] [RC] STAT 12/22/19 07:00 CBC W/O DIFF,HEMOGRAM [HEME] MOTH@69912/25/19 07:00 CBC W/O DIFF,HEMOGRAM [HEME] MOTH@69912/29/19 07:00 CBC W/O DIFF,HEMOGRAM [HEME] MOTH@69901/01/20 07:00 CBC W/O DIFF,HEMOGRAM [HEME] MOTH@69901/05/20 07:00 CBC W/O DIFF,HEMOGRAM [HEME] MOTH@69901/08/20 07:00 CBC W/O DIFF,HEMOGRAM [HEME] MOTH@0711
[2019-12-20] MEDS ORDERED: Nitroglycerin 2% Oint 1 GM UD Packet TOP ONE (12:19)
[2019-12-20] MEDS ORDERED: Aspirin 81 MG Tab.Chew PO ONE (12:19)
[2019-12-20] MEDS ORDERED: Heparin Sodium 5,000 Units/ML Vial IVPUSH ONE ×2 (12:23→12:26)
[2019-12-20] MEDS ORDERED: Heparin Sodium/D5W 25,000 UNITS/500 ML BAG IV SCH (12:30)
== END 2019-12-20 16:37 | disposition home or self-care (01) ==
LOC: JD.ED 09:56
DX: K21.9 Gastro-esophageal reflux disease without esophagitis (principal); E78.00 Pure hypercholesterolemia, unspecified; Z79.899 Other long term (current) drug therapy; Z86.73 Personal history of transient ischemic attack (TIA), and cerebral infarction without residual deficits
CPT/HCPCS: 36415; 71045; 80053; 82553; 84484; 85025; 85610; 85730; 93005; 96365; 96366; 99285; A9270; J1644; 93010; 99284

== ENCOUNTER 2019-12-22 06:37 | Day surgery (SDC) | payer BC ==
[~2019-12-22 06:37] MED LIST: Acetaminophen 325 MG Tab PO SCH; Lactated Ringers 1,000 ML IV SCH; Lidocaine 1%/Sod Bicarbonate in NS 8.4% 1 ML Syringe IDERM PRN; Morphine 8 MG, EPINEPHrine 0.3 MG, Cefuroxime 750 MG, Ketorolac 30 MG, Sodium Chloride ... PRN; Pregabalin 25 MG Cap PO SCH; Sodium Chloride 0.9% 10 ML Syringe FLUSH PRN; oxyCODONE ER 10 MG TAB.ER PO SCH
--- NOTE | 2019-12-22 06:55 | PCM.PREANE ---
Preanesthetic Assessment - Procedure Proposed Procedure: right total knee - Anesthesia/Transfusion/Family Hx Anesthesia History: Prior Anesthesia Without Reaction Family History of Anesthesia Reaction: No Transfusion History: No Prior Transfusion(s) Intubation History: Unknown - Review of Systems General: Other (was seen in ER on Sunday for chest pressure- was GERD- multiple tests done) Pulmonary: No Symptoms Cardiovascular: Chest Pain (on weekend- in ER- GERD- multiple negative tests) Gastrointestinal: No Symptoms Neurological: Other (small stroke after colon resection - - no residual side effect other than right side foot drop) Other: Reports: None - Physical Assessment NPO Status Date: 12/21/19 NPO Status Time: 22:00 Vital Signs: 124/80 67 97% 16 97.5 Height: 6 ft Weight: 88 kg ASA Class: 2 Mental Status: Alert & Oriented x3 Airway Class: Mallampati = 1 Dentition: Reports: Normal Dentition Thyro-Mental Finger Breadths: 3 Mouth Opening Finger Breadths: 3 ROM/Head Extension: Full Lungs: Clear to Auscultation, Normal Respiratory Effort Cardiovascular: Regular Rate, Regular Rhythm - Lab Values: Laboratory Last Values SARS-CoV-2 (PCR) Not detected (NOT DETECT) 12/18/19 11:00 MRSA (PCR) Negative 12/10/19 15:59 - Allergies Allergies/Adverse Reactions: Allergies Allergy/AdvReac Type Severity Reaction Status Date / Time No Known Allergies Allergy Verified 12/20/19 10:15 - Blood Blood Available: No - Acknowledgements Anesthesia Type Planned: Spinal Pt an Appropriate Candidate for the Planned Anesthesia: Yes Alternatives and Risks of Anesthesia Discussed w Pt/Guardian: Yes Pt/Guardian Understands and Agrees with Anesthesia Plan: Yes PreAnesthesia Questionnaire HEENT History: Reports: Impaired Vision Other HEENT History: wears eyeglasses. Cardiovascular History: Reports: High Cholesterol Respiratory History: Reports: None Genitourinary History: Reports: None SIGN INSTALLER History: Reports: None Musculoskeletal History: Reports: Fracture, Osteoarthritis Other Musculoskeletal History: steroid injection R kneex1 Neurological History: Reports: CVA, Other (See Below) Other Neuro History: R foot drop and general weakness in R leg, R facial droop and slight slurred speech- wears brace. Brain tumor 1992 with radiation Tx. Psychiatric History: Reports: None Endocrine/Metabolic History: Reports: None Hematologic History: Reports: None Immunologic History: Reports: Immunosuppression Oncologic (Cancer) History: Reports: Basal Cell Carcinoma, Brain, Colon Other Oncologic History: astrocytoma grade 1 - 1984. Colon ca in 12. R side of ear/face basal cell carcinoma Dermatologic History: Reports: Other (See Below) Other Dermatologic History: alopecia - Infectious Disease History Infectious Disease History: Reports: Chicken Pox, Measles - Past Surgical History Head Surgeries/Procedures: Reports: Craniotomy GI Surgical History: Reports: Colon, Colonoscopy Other GI Surgeries/Procedures: bowel resection- 2012 stage 3 colon cancer Male Surgical History: Reports: Varicocele Resection Neurological Surgical History: Reports: Other (See Below) Other Neurological Surgeries/Procedures: brain tumor. Musculoskeletal Surgical History: Reports: Other (See Below) Other Musculoskeletal Surgeries/Procedures:: R) hip fx repair. - SUBSTANCE USE Tobacco Use Status *Q: Never Tobacco User Tobacco Use Within Last Twelve Months: No Second Hand Smoke Exposure: No Days Per Week of Alcohol Use: 0 Recreational Drug Use History: No - HOME MEDS Home Medications: Home Meds Pravastatin [Pravachol] 40 mg PO BEDTIME 01/14/19 [History] Cholecalciferol (Vitamin D3) [Vitamin D3] 5,000 unit PO DAILY 12/19/19 [History] Diclofenac Sodium [Voltaren 1% Gel] 1 dose TOP QID PRN 12/19/19 [History] Multivitamin [Multi-Day Vitamins] 1 tab PO DAILY 12/19/19 [History] - CURRENT (IN HOUSE) MEDS Current Meds: Current Medications Acetaminophen (Tylenol) 975 mg PO ONETIME MARIIA Lactated Ringer's (Ringers, Lactated) 1,000 mls @ 125 mls/hr IV ASDIRECTED MARIIA Stop: 12/22/19 23:00 Lidocaine/Sodium Bicarbonate (Buffered Lidocaine 1% In Ns 8.4%) 0.25 ml IDERM ONETIME PRN PRN Reason: Prior to IV Start Stop: 12/22/19 18:00 Oxycodone HCl (Oxycontin) 10 mg PO ONETIME MARIIA Pregabalin (Lyrica) 50 mg PO ONETIME MARIIA Stop: 12/22/19 13:00 Sodium Chloride (Saline Flush) 10 ml FLUSH ASDIRECTED PRN PRN Reason: Keep Vein Open Stop: 12/22/19 18:00
[2019-12-22] MEDS ORDERED: fentaNYL 100 MCG/2 ML SDV ONE (07:12)
[2019-12-22] MEDS ORDERED: Midazolam 1 MG/ML 2 ML SDV ONE ×2 (07:12→08:53)
[2019-12-22] MEDS ORDERED: Propofol 200 MG/20 ML SDV ONE (07:12)
[2019-12-22] MEDS ORDERED: ceFAZolin 1 GM Vial ONE (07:12)
[2019-12-22] MEDS ORDERED: Pregabalin 25 MG Cap PO ONE (07:15)
[2019-12-22] MEDS ORDERED: Ropivacaine 0.5% 5 MG/ML 30 ML SDV ONE (07:19)
[2019-12-22] MEDS ORDERED: EPINEPHrine 1 MG/ML SDV ONE (07:19)
[2019-12-22] MEDS: Vancomycin 1 GM SDV ONE ×2 (07:53→09:40)
[2019-12-22] MEDS: Bupivacaine 0.25% 10 ML SDV ONE ×2 (07:53→09:23)
[2019-12-22] MEDS ORDERED: ePHEDrine Sulfate/0.9% NaCl/Pf 25 MG/5 ML SYRINGE IV ONE ×2 (08:17→09:55)
[2019-12-22] MEDS ORDERED: Lactated Ringers 1,000 ML ONE ×2 (08:21→09:25)
[2019-12-22] MEDS ORDERED: Ondansetron 4 MG/2 ML SDV IVPUSH PRN (08:32)
[2019-12-22] MEDS ORDERED: fentaNYL 100 MCG/2 ML SDV IVPUSH PRN (08:32)
[2019-12-22] MEDS ORDERED: HYDROmorphone 0.5 MG/0.5 ML Syringe IVPUSH PRN (08:32)
[2019-12-22] MEDS ORDERED: Morphine 8 MG, EPINEPHrine 0.3 MG, Cefuroxime 750 MG, Ketorolac 30 MG, Sodium Chloride ... ONE ×5 (09:00)
--- NOTE | 2019-12-22 10:05 | PCM.POSTAN ---
POST ANESTHESIA ASSESSMENT - MENTAL STATUS Mental Status: Alert, Oriented - VITAL SIGNS Vital Signs: Last Vital Signs Temp 97.5 F 12/22/19 06:40 Pulse 67 12/22/19 06:40 Resp 16 12/22/19 06:40 BP 124/80 12/22/19 06:40 Pulse Ox 97 12/22/19 06:40 0958 65 11 97.8 112/67 96% - RESPIRATORY Respiratory Status: Respiratory Rate WNL, Airway Patent, O2 Saturation Stable, Supplemental Oxygen - CARDIOVASCULAR CV Status: Pulse Rate WNL, Blood Pressure Stable - GASTROINTESTINAL GI Status: No Symptoms - PAIN Pain Score: 0 - POST OP HYDRATION Hydration Status: Adequate & Stable
[2019-12-22] MEDS ORDERED: Ketorolac 30 MG/ML SDV ONE (10:06)
--- NOTE | 2019-12-22 10:23 | PCM.SN.2 ---
- Free Text/Narrative Note: Right selective femoral nerve block at the adductor canal for post-procedure pain control under US guidance requested by Dr. Tadeo. Date: 12/22/19 Time Out:1010 Start:1011 End: 1016 Chart reviewed. Consent signed. Questions answered. Appropriate monitors applied. Time out performed. Right mid-shaft femur identified with ultrasound, scanning medially of femur, the femoral artery in the adductor canal visualized, and the femoral nerve located laterally to the artery. The skin was prepped lateral to the ultrasound probe with chlorahexadine times two. The 21ga 4 insulated block needle was inserted under direct ultrasound guidance into the adductor canal. 25mL of 0.5% ropivacaine with 1:200,000 epinephrine was injected circumferentially around the nerve with intermittent negative aspiration noted. Patient tolerated the procedure well. Sterile technique noted along with sterile gloves, mask, and sterile probe cover. See picture on progress note and vital signs on nurses notes. Block completed in PACU. Vinicius Kolb CRNA
[2019-12-22] MEDS ORDERED: oxyCODONE 5 MG Tab PO PRN (10:37)
--- NOTE | 2019-12-22 11:48 | PCM48HPAN ---
Post Anesthesia Note - EVALUATION WITHIN 48HRS OF ANESTHETIC Vital Signs in Normal Range: Yes Patient Participated in Evaluation: Yes Respiratory Function Stable: Yes Airway Patent: Yes Cardiovascular Function Stable: Yes Hydration Status Stable: Yes Pain Control Satisfactory: Yes Nausea and Vomiting Control Satisfactory: Yes Mental Status Recovered: Yes Vital Signs: Last Vital Signs Temp 97.5 F 12/22/19 10:45 Pulse 73 12/22/19 11:30 Resp 16 12/22/19 11:30 BP 110/75 12/22/19 11:30 Pulse Ox 95 12/22/19 11:30 - COMMENTS/OBSERVATIONS Free Text/Narrative:: Just finished eating. Sitting up in bed. No complaints. Denies pain.
--- NOTE | 2019-12-25 14:55 | CR ---
PROCEDURE INFORMATION: Exam: XR Right Knee Exam date and time: 12/22/2019 9:59 AM Age: 59 years old Clinical indication: Condition or disease; Joint replacement status; Knee; Right TECHNIQUE: Imaging protocol: XR Right knee. Views: 1 or 2 views. COMPARISON: CR Bone Length Scanogram, Knee 3V Rt, Knee Standing AP Bi 11/04/2019 9:22 AM FINDINGS: Bones/joints: There has been an interval total knee replacement. Prosthesis appears in good alignment. There is soft tissue and joint air. There is posterior patellar resurfacing. Soft tissues: See "Bones/joints" finding. IMPRESSION: Knee replacement in good alignment. Thank you for allowing us to participate in the care of your patient. Dictated and Authenticated by: John Lieberman MD 12/22/2019 11:51 AM Central Time ([place] & [place]) [place]
--- NOTE | 2019-12-29 07:32 | PCM.OPNOTE ---
- General Post-Op/Procedure Note Date of Surgery/Procedure: 12/22/19 Operative Procedure(s): right total knee arthroplasty Pre Op Diagnosis: right knee osteoarthrosis Post-Op Diagnosis: Same Anesthesia Technique: Local, MAC, Spinal Primary Surgeon: Abdoul Tadeo Anesthesia Provider: Vinicius Kolb Fruit And Vegetable Packer: Rakel Tamayo Fruit And Vegetable Packer: Estefani Smalls in mLs: 5 Complications: None Condition: Good Free Text/Narrative:: 08/01 32x10 9mm
--- NOTE | 2019-12-30 06:08 | OR ---
DATE OF OPERATION: 12/22/2019 SURGEON: Abdoul Tadeo MD OPERATION PERFORMED: Right total knee arthroplasty. PREOPERATIVE DIAGNOSIS: Right knee osteoarthrosis. POSTOPERATIVE DIAGNOSIS: Right knee osteoarthrosis. ANESTHESIA: Local MAC with spinal. ANESTHESIA PROVIDER: Vinicius Klob CRNA ASSISTANTS: Rakel Tamayo PA-C and Estefani Smalls LPN. ESTIMATED BLOOD LOSS: 5 mL. COMPLICATIONS: None. CONDITION: Stable. IMPLANTS: 1. Lillie size 6 cemented PS femur. 2. Lillie size 6 cemented Benedict tibial baseplate. 3. Vinson size 6, 9 mm PS X3 polyethylene insert. 4. Lillie size 32 x 10 mm cemented asymmetric patella. DESCRIPTION OF PROCEDURE: The patient was identified in the preop holding area. Proper site was marked and identified by the surgeon. The patient was taken back to the operating theater. After adequate anesthesia, the patient's right lower extremity had a nonsterile tourniquet applied and it was sterilely prepped and draped in the usual sterile fashion. OR time-out was performed. The patient received 2 g IV Ancef. At this time, the right lower extremity was exsanguinated. Tourniquet was insufflated to 300 mmHg. Standard medial parapatellar incision was made. Medial parapatellar arthrotomy was created. Deep fibers of the MCL were raised and anterior fat pad was resected. At this time, attention was turned to the patella. Patella measured 25, it was resected to a 15 for 32 x 10 mm patella. Drill holes were then drilled and found to be in adequate position. The drill was then drilled in the distal femur and the intramedullary distal femoral cutting guide was then placed. 10 mm was resected off the distal femur and was found to be an adequate resection. Sizing guide was placed. It was found to be a size 6 cemented PS femur that was shown on the implant record at the beginning of this dictation. The drill holes were drilled for the epicondylar axis using Whitesides line and epicondyles as reference. At this time, the 4-in-1 cutting block was placed. An anterior posterior and anterior and posterior chamfer cuts were then completed. Box cut was completed at this time. Attention was turned to the tibia. The posterior medial lateral retractors were placed. The extramedullary tibial guide was placed. It was placed in the old footprint of the ACL. It was aligned with the center of the ankle and 0 degrees of slope, 9 mm was then resected off the unaffected side. There was found to be an acceptable reduction. At this time, posterior osteophytes were removed along with medial and lateral meniscus. A trial implant was placed with a correct sized tibia that was mentioned at the beginning of the dictation. A Vinson size 6, 9 mm PS X3 polyethylene insert was then placed. The patient's knee was brought through range of motion. The patella was tracking centrally and was stable to varus and valgus stress. Alignment was found to be roughly at 0 degrees. The tibia was stamped and drilled in proper rotation. The Benedict tibial base plate was impacted in place. Next, the Vinson size 6 cemented PS femur impacted into place and the Vinson size 6, 9 mm PS X3 polyethylene insert was placed. The patient's knee was brought into full extension. The patella was then cemented in place at this time. Excess cement was removed. 1 L of pulse lavage irrigation with Ancef and Irricept were irrigated through the knee. Periarticular injection was then completed. The patient's knee was brought through a range of motion. Once the cement had time to set up and it was found to be stable to varus valgus stress, the patella was tracking centrally with full range of motion. At this time, a #2 barbed suture was used for closure of the medial parapatellar arthrotomy. Topical tranexamic acid was placed. 2-0 Vicryl was used subcutaneously, Prineo was used for the skin. The patient tolerated the procedure well and was sent to the PACU in stable condition. SHEELA /[id number] LINNETTE
== END 2019-12-22 14:30 | disposition home or self-care (01) ==
LOC: JD.SDS 06:37
PROVIDERS: ATTEND Orthopaedic Surgery
DX: M17.11 Unilateral primary osteoarthritis, right knee (principal); Z01.812 Encounter for preprocedural laboratory examination; Z20.828 Contact with and (suspected) exposure to other viral communicable diseases; Z79.899 Other long term (current) drug therapy
CPT/HCPCS: 27447; 73560; 87635; 87641; 97162; 97165; A9270; C1713; C1776; J0171; J0690; J0697; J1885; J2250; J2270; J2704; J2795; J3010; J3370; J3490; J7120; 64450; U0002

== ENCOUNTER 2023-01-15 10:17 | Emergency (ER) | payer BC ==
[2023-01-15] MEDS ORDERED: Sodium Chloride 0.9% 10 ML Syringe FLUSH PRN (10:26)
[2023-01-15 11:06] LABS: BASOPHILS PERCENT AUTO 0.6 % (0.0-1.0); EOSINOPHILS ABSOLUTE AUTO 0.1 K/mm3 (0.0-0.4); EOSINOPHILS PERCENT AUTO 1.7 % (0.0-6.0); HEMATOCRIT 43.6 % (42.0-52.0); HEMOGLOBIN 14.8 gm/dl (14.0-18.0); IMMATURE GRAN ABSOLUTE AUTO 0.01 K/mm3 (0.00-0.05); IMMATURE GRAN PERCENT AUTO 0.2 % (0.0-0.4); LYMPHOCYTES ABSOLUTE AUTO 0.8 K/mm3 (1.0-4.8); LYMPHOCYTES PERCENT AUTO 15.5 % (24.0-44.0); MEAN CORPUSCULAR HEMOGLOBIN 31.3 pg (28.0-32.0); MEAN CORPUSCULAR HGB CONC 33.9 g/dl (32.0-36.0); MEAN CORPUSCULAR VOLUME 92.2 fl (83.0-99.0); MEAN PLATELET VOLUME 9.7 fl (9.4-12.4); MONOCYTES ABSOLUTE AUTO 0.5 K/mm3 (0.0-0.8); MONOCYTES PERCENT AUTO 8.3 % (0.0-8.0); NEUTROPHILS PERCENT AUTO 73.7 % (41.0-71.0); PLATELET COUNT,PLT 166 K/mm3 (150-400); RED BLOOD CELL COUNT 4.73 M/mm3 (4.52-5.90); WHITE BLOOD CELL COUNT,WBC 5.43 K/mm3 (3.9-11.3)
[2023-01-15 11:23] LABS: INR 1.09; PROTHROMBIN TIME 11.6 SECONDS (9.7-12.0)
[2023-01-15 11:25] LABS: ALBUMIN 3.5 g/dl (3.4-5.0); ANION GAP 11.3 (5-15); BILIRUBIN TOTAL 0.5 mg/dL (0.2-1.0); BUN/CREATININE RATIO 14.6 (14-18); C-REACTIVE PROTEIN 0.9 mg/dL (<1.0); CALCIUM 8.8 mg/dL (8.5-10.1); CREATININE 1.3 mg/dL (0.7-1.3); EST CRCL DRUG DOSING (CG) 61.61 mL/min; MAGNESIUM 1.8 mg/dL (1.8-2.4); POTASSIUM,K 4.3 mEq/L (3.5-5.1); PROTEIN TOTAL,TP 6.9 g/dl (6.4-8.2); PTT,PARTIAL THROMBOPLSTIN TIME 31.1 SECONDS (21.7-31.4)
== END 2023-01-15 13:52 | disposition home or self-care (01) ==
LOC: JD.ED 10:17
DX: I69.320 Aphasia following cerebral infarction (principal); I10 Essential (primary) hypertension; E78.00 Pure hypercholesterolemia, unspecified; Z79.82 Long term (current) use of aspirin; Z79.899 Other long term (current) drug therapy
CPT/HCPCS: 36415; 70450; 70496; 70498; 70551; 80053; 82947; 83735; 85025; 85610; 85730; 86140; 99285; J3490; 99283